=== PATIENT | male | born 1960 | race Caucasian/White ===

== ENCOUNTER 2019-04-23 16:28 | Emergency (ER) | payer MEDICARE, SELFPAY ==
--- NOTE | ~2019-04-23 | CT_ITS ---
EXAMINATION: CTA chest PE protocol EXAM DATE: 04/23/2019 18:07 INDICATION: Shortness of air, tachycardia. TECHNIQUE: Spiral CTA of the chest (pulmonary arteries) was performed with 100 cc Omnipaque 350 intr avenous contrast injection. Images were acquired during the pulmonary arterial phase. Coronal maxi mum intensity projection 3D-reconstructions were created by the technologist on dedicated workstation . Axial, coronal and sagittal reformatted images were reviewed. The dose-length product (DLP) for t his examination was 1182.35 mGy-cm. The exposure was tailored according to patient size (auto mA ex posure control), and iterative reconstruction (ASIR) was used as additional dose reduction technique. There is no prior study for comparison. FINDINGS: There are no pulmonary emboli in the 1st through 3rd order (central and interlobar) pulmon mark arteries. Some loss of attenuation in the segmental pulmonary arteries due to respiratory motion , but no intraluminal filling defects suspected. No thoracic aortic dissection. The lungs are brooke r. There are no pleural or pericardial effusions. Tracheobronchial tree is patent. There is no mediastinal, hilar or axillary lymphadenopathy. There is no pneumothorax. Heart normal in size. No evidence of coronary arterial calcification. Bilateral adrenal gland hyperplasia. There is thor acic spondylosis without osteoblastic or osteolytic lesions identified. IMPRESSION: 1. Limited segmental evaluation, but no pulmonary emboli are suspected. 2. No acute cardiopulmonary findings. Reviewed, dictated and finalized at location A. ERY EXAMINER
[2019-04-23 16:28] VITALS: BP 134/79; PULSE 107; RESP 19; TEMP 37.7; O2SAT 94
--- NOTE | 2019-04-23 16:55 | ECG_ITS ---
Measurements Intervals [place] Rate: 99 P: 67 UT: 168 QRS: -79 QRSD: 149 T: 47 QT: 374 QTc: 482 Interpretive Statements SINUS RHYTHM RIGHT BUNDLE BRANCH BLOCK LEFT ANTERIOR FASCICULAR BLOCK BASELINE WANDER- II, III, V6 ABNORMAL ECG Electronically Signed On 04-23-2019 20:13:23 OPERATIONS AND INTELLIGENCE ASSISTANT by iAdan Blood D.O.
[2019-04-23 17:12] LABS: Basophils Absolute Auto 0.06 K/mm3 (0.00-0.10); Basophils Percent Auto 0.3 % (0.0-1.0); Eosinophils Absolute Auto 0.06 K/mm3 (0.02-0.50); Eosinophils Percent Auto 0.3 % (1.0-6.0); Hematocrit 44.8 % (40.0-54.0); Hemoglobin 14.8 g/dL (14.0-18.0); Immature Granulocyte Absolute 0.11 K/mm3 (0.00-0.00); Immature Granulocyte Percent A 0.6 % (0.0-0.0); Lymphocytes Absolute Auto 2.29 K/mm3 (1.10-4.50); Lymphocytes Percent Auto 12.7 % (18.0-42.0); Mean Corpuscular Hemoglobin 26.1 pg (27.0-31.0); Mean Corpuscular Volume 78.9 fL (78.0-102.0); Monocytes Absolute Auto 0.71 K/mm3 (0.10-0.90); Monocytes Percent Auto 3.9 % (2.0-11.0); Neutrophils Absolute Auto 14.8 K/mm3 (1.7-7.2); Neutrophils Percent Auto 82.2 % (50.0-70.0); Platelet Count Result 320 K/mm3 (150-420); Red Blood Count 5.68 M/mm3 (4.70-6.10)
[2019-04-23 17:23] LABS: INR 3.4; Prothrombin Time 33.5 Seconds (9.64-11.0)
[2019-04-23 17:28] LABS: Influenza Control Valid (Valid)
[2019-04-23 17:30] LABS: BNP 6.5 pg/mL (0-100)
[2019-04-23 17:39] LABS: Alanine Aminotransferase 24 U/L (16-63); Albumin Level 3.7 g/dL (3.4-5.0); Alkaline Phosphatase 78 U/L (46-116); Anion Gap 17.9 mmol/L (7-16); Aspartate Amino Transferase 14 U/L (15-37); Bilirubin,Total 0.4 mg/dL (0.00-1.00); Blood Urea Nitrogen 13 mg/dL (7-18); Calcium 9.3 mg/dL (8.5-10.1); Carbon Dioxide 22 mmol/L (21-32); Chloride 97 mmol/L (98-108); Estimated CRCL calculation 116 ml/min; Estimated Glomerular Filt Rate > 60; Glucose 107 mg/dL (70-99); Osmolality Calculated 276 mOsm/kg (285-295); Potassium 3.9 mmol/L (3.5-5.1); Sodium 133 mmol/L (136-145); Troponin I < 0.02 ng/mL (0.00-0.056)
--- NOTE | 2019-04-23 17:41 | ED.GENADULT ---
HPI - General Adult General Chief complaint: Upper Respiratory Infection Stated complaint: amb History of Present Illness HPI narrative: Carlos is a 58M with a past medical history of hypertension, hyperlipidemia, COPD, diabetes as well as a history of DVT/PE that presented to the emergency department by EMS for jitters. Earlier today he started noticing he had the shakes. He also noticed his heart was beating fast. He has a home pulse ox and he thought it went down to the upper 80s. He states that he feels like he cannot get a deep breath but he can move air fine. he also has had a productive cough, Subjective fevers and chills. He denies any chest pain, syncope/ near syncope, and vomiting. Related Data Home Medications Medication Instructions Recorded Confirmed amlodipine 5 mg PO DAILY 04/23/19 04/23/19 atorvastatin 40 mg PO HS 04/23/19 04/23/19 budesonide-formoterol [Symbicort] 2 puff INHALATION BID 04/23/19 04/23/19 fluticasone propion-salmeterol 1 inh INHALATION DAILY 04/23/19 04/23/19 [Advair Diskus] insulin glargine [Basaglar KwikPen 1 unit SUBCUT DAILY 04/23/19 04/23/19 U-100 Insulin] insulin lispro [Humalog U-100 1 unit SUBCUT TID 04/23/19 04/23/19 Insulin] lisinopril-hydrochlorothiazide 1 tablet PO DAILY 04/23/19 04/23/19 metformin 500 mg PO DAILY 04/23/19 04/23/19 montelukast 10 mg PO DAILY 04/23/19 04/23/19 umeclidinium [Incruse Ellipta] 1 inh INHALATION DAILY 04/23/19 04/23/19 warfarin 1 mg PO HS 04/23/19 04/23/19 Allergies Allergy/AdvReac Type Severity Reaction Status Date / Time No Known Allergies Allergy Verified 01/30/19 09:18 Review of Systems Constitutional: Constitutional: Reports as per HPI, Denies chills and Denies fever(s) Eyes: Eyes: Reports no additional eye complaints ENT: Reports system reviewed and no additional complaints, except as documented Cardiovascular: Cardiovascular: Denies chest pain, Reports rapid heart rate and Denies radiating jaw, neck or arm pain Respiratory: Respiratory: Reports as per HPI Gastrointestinal: Gastrointestinal: Reports as per HPI Genitourinary: Genitourinary: Reports no additional male genitourinary complaints Musculoskeletal: Musculoskeletal: Reports no additional musculoskeletal complaints Integumentary/Breasts: Skin/Breast: Reports as per HPI Neurologic: Reports as per HPI Psychiatric: Psychiatric: Reports no additional psychiatric complaints Endocrine: Endocrine: Reports no additional endocrine complaints Hematologic/Lymphatic: Hematologic/Lymphatic: Reports no additional hematologic/lymphatic complaints Allergic/Immunologic: Allergic/Immunologic: Reports no additional allergic/immunologic complaints Exam Const: General: no acute distress and alert; No confusion Nutritional Appearance: obese Orientation/consciousness: patient oriented x3 Limitations: No altered mental status HENMT: Head: normal to inspection Other: normocephalic, atraumatic Eyes: Conjunctivae: conjunctivae normal Pupils: Equal, round and reactive pupils present Neck: Neck: normal visual inspection Chest: Chest palpation & inspection: normal inspection of the chest Resp: Effort & Inspection: normal respiratory effort Auscultation: clear to auscultation bilaterally Cardio: Rate: tachycardic Rhythm: regular rhythm Heart sounds: no murmurs Other: GI: GI Palp: Yes Soft to palpation, No Tenderness to palpation present (GI) and No Guarding due to palpation present (GI) Back/Spine/Pelvis: Back: no CVA tenderness Skin: General skin exam: normal color Other: Had tender erythematous rash under his pannus and in his groin folds with white exudate. He was also started found have surrounding beefy red erythema Neuro: General: patient oriented x3, moves all extremities, no focal motor deficits and CN's II-XI intact bilaterally Speech: normal speech Extrem: General: normal to inspection Psych: Mental Status: mental status grossly normal Cou
[2019-04-23 19:58] LABS: Add Urine Microscopic? NO; Appearance Urine Clear (Clear); Bilirubin Urine Negative (Negative); Blood Urine Negative (Negative); Color Urine Yellow (Yellow); Glucose Urine UA Negative (Negative); Ketones Urine Negative (Negative); Leukocyte Esterase Ur Negative (Negative); Nitrate Urine Negative (Negative); Protein Urine Negative (Negative); Specific Grav Ur <= 1.005 (1.010-1.020); Urobilinogen Urine 0.2 mg/dL (0.2-1.0)
[2019-04-23] MEDS: FLUCONAZOLE 100 MG TABLET 200 MG (20:13)
[2019-04-23] MEDS: CEPHALEXIN 500 MG CAPSULE PO (20:13)
[2019-04-23 20:26] VITALS: BP 122/77; PULSE 104; RESP 14; O2SAT 94
== END 2019-04-23 20:28 | disposition home or self-care (01) ==
PROVIDERS: Emergency Provider Family Medicine; PCP Family Medicine
DX: L30.4 Erythema intertrigo (principal); L03.90 Cellulitis, unspecified; R06.89 Other abnormalities of breathing; I10 Essential (primary) hypertension; E78.5 Hyperlipidemia, unspecified; J44.9 Chronic obstructive pulmonary disease, unspecified; E11.9 Type 2 diabetes mellitus without complications; Z86.718 Personal history of other venous thrombosis and embolism; Z79.01 Long term (current) use of anticoagulants
CPT/HCPCS: 36415; 71275; 80053; 81003; 83880; 84484; 85025; 85610; 87804; 93005; 99283; 99284; A9270; Q9965

== ENCOUNTER 2021-07-12 14:33 | Outpatient (CLI) | payer MEDICARE, SELFPAY ==
[2021-07-12 15:07] LABS: Creatinine Urine 22.81 mg/dL (40-278); MALB Creatinine Ratio 56.9 mg/g (0-30); Microalbumin Urine Random < 13.0 mg/L
[2021-07-12 15:20] LABS: Hemoglobin A1C 6.6 % (<5.7)
[2021-07-12 17:17] LABS: Alanine Aminotransferase 33 U/L (16-63); Albumin Level 3.6 g/dL (3.4-5.0); Alkaline Phosphatase 95 U/L (46-116); Anion Gap 13 mmol/L (8-16); Aspartate Amino Transferase 25 U/L (15-37); Bilirubin,Total 0.4 mg/dL (0.00-1.00); Blood Urea Nitrogen 14 mg/dL (7-18); Carbon Dioxide 23 mmol/L (21-32); Chloride 98 mmol/L (98-108); Cholesterol 112 mg/dL (0-200); Estimated Glomerular Filt Rate > 60; Glucose 197 mg/dL (70-99); HDL Direct 26 mg/dL (40-60); LDL Cholesterol Calculated 37 mg/dL (<130); Osmolality Calculated 283 mOsm/kg (285-295); Potassium 4.3 mmol/L (3.5-5.1); Sodium 134 mmol/L (136-145); Total Protein 7.1 g/dL (6.4-8.2); Triglycerides 244 mg/dL (0-150)
== END 2021-07-12 14:34 | disposition home or self-care (01) ==
LOC: CHSLAB 14:36
PROVIDERS: PCP Family Medicine; Visit Provider Family Medicine
DX: E11.9 Type 2 diabetes mellitus without complications (principal)
CPT/HCPCS: 36415; 80053; 80061; 82043; 83036

== ENCOUNTER 2021-08-03 10:29 | Outpatient (CLI) | payer MEDICARE, SELFPAY ==
--- NOTE | ~2021-08-03 | CT_ITS ---
EXAMINATION:CT lung screening DATE: 08/03/2021 10:48 INDICATION: Personal history of tobacco dependence. Current smoker with 80 pack year history. TECHNIQUE: Computed tomography (CT) of the chest was performed without intravenous contrast. Automate d exposure control and iterative reconstruction technique were employed. The dose-length product (DLP ) was 537.84 mGy-cm. COMPARISON: Chest CT 04/23/2019 FINDINGS: There is moderate emphysema. There is minimal atelectasis bilaterally. No pleural effusion. There is bilateral gynecomastia. The heart size is normal. There are coronary artery calcifications. No pericardial effusion. There are old healed right rib fractures. There is mild thoracic spondylosi s. IMPRESSION: 1. Lung-RADS category 2: Benign appearance or behavior. Continue annual screening with noncontrast lo w-dose chest CT in 12 months. Reviewed, dictated and finalized at location B. IMPRESSION: 1. Lung-RADS category 2: Benign appearance or behavior. Continue annual screeni ng with noncontrast low-dose chest CT in 12 months.
== END 2021-08-03 10:30 | disposition home or self-care (01) ==
LOC: CHSIMG 10:31
PROVIDERS: PCP Family Medicine; Visit Provider Nurse Practitioner Family
DX: Z12.2 Encounter for screening for malignant neoplasm of respiratory organs (principal); Z87.891 Personal history of nicotine dependence; R06.02 Shortness of breath
CPT/HCPCS: 71271

== ENCOUNTER 2022-05-05 13:34 | Outpatient (CLI) | payer MEDICARE, SELFPAY ==
--- NOTE | 2022-05-05 13:41 | ECHO_ITS ---
Patient Info Name: Carlos Mak Age: 61 years : 1960 Gender: Male Ht: 65 in Wt: 329 lbs BSA: 2.71 m2 HR: 96 bpm BP: 155 / 84 mmHg Technical Quality: Fair Exam Date: 05/05/2022 1:29 PM Exam Location: [facility], [place] Patient Status: Outpatient Admit Date: 05/05/2022 Staff Ordering Physician: Aidan Blood DO Computer Systems Consultant: Delvin Williamson RDCS, RT Attending Provider: Aidan Blood DO Referring Physician: Jeremi SIN; Exam Type: CA echo dop color flow w con Study Info Indications R06.00 - Dyspnea, unspecified Complete two-dimensional, color flow and Doppler transthoracic echocardiogram is performed with contrast to opacify the left ventricle and to improve the deliniation of the left ventricle endocardial borders. Summary 1. Left ventricular chamber dimension is normal. 2. Definity contrast administered improved wall motion interpretation. 3. Left ventricular systolic function is normal, estimated at 65-70%. 4. There is mild concentric increased left ventricular wall thickness. 5. The left ventricular diastolic function is grade I diastolic dysfunction. 6. E/e' 7 is not elevated. 7. There is mild aortic valve sclerosis. 8. The mitral valve has mildly calcified annulus. 9. There is trace tricuspid valve regurgitation. 10. Mild pulmonary hypertension, estimated pulmonary arterial systolic pressure is 42 mmHg. Left Ventricle E/e' 7 is not elevated. Definity contrast administered improved wall motion interpretation. Left ventricular chamber dimension is normal. Left ventricular systolic function is normal, estimated at 65-70%. There is mild concentric increased left ventricular wall thickness. The left ventricular diastolic function is grade I diastolic dysfunction. Right Ventricle Right ventricular systolic function is normal and with normal TAPSE 3.2 cm. Right ventricular chamber dimension is normal. Left Atria Left atrial chamber dimension is normal. Right Atria Right atrial chamber dimension is normal. Aortic Valve The aortic valve is probable trileaflet. There is mild aortic valve sclerosis. There is no aortic valve stenosis. There is no aortic valve regurgitation. Pulmonic Valve There is no pulmonic regurgitation. Mitral Valve The mitral valve has mildly calcified annulus. There is no mitral valve stenosis. There is no mitral valve regurgitation. Tricuspid Valve There is trace tricuspid valve regurgitation. Mild pulmonary hypertension, estimated pulmonary arterial systolic pressure is 42 mmHg. Pericardium/Pleural There is no pericardial effusion. Inferior Vena Cava Normal inferior vena cava with >50% collapse upon inspiration consistent with normal right atrial pressure, 5 mmHg. Aorta The aortic root size at the sinus of Valsalva is normal. Left Ventricular Outflow Tract Name Value Normal LVOT 2D LVOT Diameter 2.10 cm LVOT Doppler LVOT Peak Velocity 118.29 cm/s LVOT Peak Gradient 6 mmHg LVOT Mean Gradient 3 mmHg LVOT VTI 23.79 cm LVOT VTI/AV VTI
--- NOTE | 2022-05-05 14:47 | ECG_ITS ---
Measurements Intervals [place] Rate: 90 P: 68 VA: 192 QRS: -84 QRSD: 159 T: 34 QT: 392 QTc: 481 Interpretive Statements SINUS RHYTHM RIGHT BUNDLE BRANCH BLOCK LEFT ANTERIOR FASCICULAR BLOCK BASELINE ARTIFACT- I, III, AVR, AVL, AVF, V4 ABNORMAL ECG COMPARED TO ECG 04/23/2019 17:17:48 NO SIGNIFICANT CHANGES Electronically Signed On 05-05-2022 15:12:52 CDT by Aidan Blood D.O.
== END 2022-05-05 13:35 | disposition home or self-care (01) ==
LOC: CHSIMG 13:36
PROVIDERS: PCP Family Medicine; Visit Provider Internal Medicine Cardiovascular Disease
DX: R06.09 Other forms of dyspnea (principal); I35.0 Nonrheumatic aortic (valve) stenosis; I45.10 Unspecified right bundle-branch block; I27.20 Pulmonary hypertension, unspecified
CPT/HCPCS: 93005; C8929

== ENCOUNTER 2022-09-07 12:51 | Outpatient (CLI) | payer MEDICARE, SELFPAY ==
--- NOTE | ~2022-09-07 | CT_ITS ---
EXAMINATION:CT lung screening DATE: 09/07/2022 13:26 INDICATION: Personal history of nicotine dependence. Current smoker with 25 pack year history. TECHNIQUE: Computed tomography (CT) of the chest was performed without intravenous contrast. Automate d exposure control and iterative reconstruction technique were employed. The dose-length product (DLP ) was 626.32 mGy-cm. COMPARISON: Chest CT 08/03/2021, 10/08/13 FINDINGS: There is moderate emphysema. The lungs demonstrate minimal atelectasis. No pleural effusion . The heart size is normal. There are coronary artery calcifications. No pericardial effusion. There is bilateral gynecomastia. There is mild thoracic spondylosis. IMPRESSION: 1. Lung-RADS category 1: Negative. Continue annual screening with noncontrast low-dose chest CT in 12 months. Reviewed, dictated and finalized at location A. IMPRESSION: 1. Lung-RADS category 1: Negative. Continue annual screening with noncontrast l ow-dose chest CT in 12 months.
[2022-09-07 13:39] LABS: Alanine Aminotransferase 34 U/L (16-63); Albumin Level 3.5 g/dL (3.4-5.0); Alkaline Phosphatase 118 U/L (46-116); Anion Gap 14 mmol/L (8-16); Aspartate Amino Transferase 17 U/L (15-37); Bilirubin,Total 0.5 mg/dL (0.00-1.00); Blood Urea Nitrogen 16 mg/dL (7-18); Calcium 9.2 mg/dL (8.5-10.1); Carbon Dioxide 24 mmol/L (21-32); Chloride 98 mmol/L (98-108); Cholesterol 107 mg/dL (0-200); Estimated Glomerular Filt Rate > 60; Glucose 190 mg/dL (70-99); HDL Direct 28 mg/dL (40-60); LDL Cholesterol Calculated 31 mg/dL (<130); Magnesium 1.7 mg/dL (1.8-2.4); Osmolality Calculated 288 mOsm/kg (285-295); Potassium 4.4 mmol/L (3.5-5.1); Sodium 136 mmol/L (136-145); Total Protein 7.3 g/dL (6.4-8.2); Triglycerides 240 mg/dL (0-150)
== END 2022-09-07 12:52 | disposition home or self-care (01) ==
LOC: CHSIMG 12:58
PROVIDERS: Internal Medicine Cardiovascular Disease; PCP Family Medicine; Visit Provider Nurse Practitioner Family
DX: Z12.2 Encounter for screening for malignant neoplasm of respiratory organs (principal); E78.5 Hyperlipidemia, unspecified; Z87.891 Personal history of nicotine dependence
CPT/HCPCS: 36415; 71271; 80053; 80061; 83735

== ENCOUNTER 2022-09-19 13:30 | Outpatient (CLI) | payer MEDICARE, SELFPAY ==
[2022-09-19 14:16] VITALS: PULSE 112; O2SAT 92
[2022-09-19 14:20] VITALS: PULSE 127; O2SAT 89
--- NOTE | 2022-09-19 14:21 | HOMEO2EVAL ---
Evaluation was performed at [facility] Home Oxygen Evaluation RC: Home Oxygen (O2) Evaluation Start: 09/19/22 13:59 Freq: Status: Active Protocol: RPE Activity Type Activity Date Activity User E-sign Co-sign Detail Recorded Client Recorded Date Recorded By Document 09/19/22 14:16 KRM [id number] 09/19/22 14:21 KRM Document 09/19/22 14:20 KRM [id number] 09/19/22 14:21 KRM 09/19/22 09/19/22 14:16 14:20 Home O2 Evaluation [Oxygen] -Test Phase Resting Exercise -Oxygen Delivery Room Air Room Air [Pulse Oximetry] -Pulse Oximetry (90-100 %) 92 89 L [Pulse Rate] -Pulse Rate (60-100 beats/min) 112 H 127 H [Evaluation] -Activity Tolerance Poor [Exercise] -Ambulation Distance (feet) 100 -Ambulation Distance (meters) 30.47 [Comments] -Home Oxygen Evaluation Comments No supplemental o2 needed at this time. [Charges] -Treatment Charges O2 Evaluation - Outpatient
--- NOTE | 2022-09-25 23:01 | P.PCNPFT_ITS ---
PFT Interpretation DOS: 09/19/2022 REQUESTING: Delfin Jones APRN REASON FOR TESTING: Asthma-COPD PULMONARY FUNCTION TESTS Results are reliable and reproducible. Spirometry: Pre bronchodilator FEV1 is 2.17 L, 79%, normal. Pre bronchodilator FVC is 3.41 L, 97%, normal. FEV1 /FVC is 64%. After bronchodilator FEV1 is 2.23 L, 81%, +3% increase. After bronchodilator FVC is 3.58 L, 101%, +5% increase. This is statistically insignificant. The FEF 25- 75% is 1.06 L, 37% before bronchodilator, and there was a 6% drop after bronchodilator. Lung volumes: Total lung capacity is 4.91 L, 90% predicted, normal. Residual volume is 1.50 L, 74%. RV/TLC is 31%. Low end of normal. Airway resistance 54% predicted. Diffusion: DLCO is 16.5, 54%, mildly decreased. DLCO /VA 3.40, 88%, normal. Flow volume loop: There is mild coving of the expiratory limb consistent with airflow obstruction. IMPRESSION: This study shows a mild obstructive ventilatory impairment without response to bronchodilator, normal lung volumes, mild diffusion impairment that corrects for alveolar volume. Lack of response to bronchodilator should not preclude use if clinically indicated. Compared to the prior study 08/14/2017 the FEV1 has dropped more than expected, now 2.17 L compared to 2.56 L, now 79% and previously was 93%. there was no airflow obstruction A prior PFT on 08/14/2017 shows FEV1 2.56 L, 93% predicted, FVC 3.65 L, 104% predicted, and an FEV1/FVC ratio of 86%. No significant change after bronchodilator. Total lung capacity 5.16 L, 97%. Residual volume 1.49 L, 79%. RV/TLC 29%. The DLCO was 18.5, 60%, DLCO/ VA 3.87, 99%. Hannah Meadows MD
== END 2022-09-19 13:31 | disposition home or self-care (01) ==
LOC: CHSCARD 13:31
PROVIDERS: PCP Family Medicine; Visit Provider Nurse Practitioner Family
DX: J44.9 Chronic obstructive pulmonary disease, unspecified (principal)
CPT/HCPCS: 94060; 94618; 94726; 94729

== ENCOUNTER 2023-04-18 08:57 | Outpatient (CLI) | payer MEDICARE, SELFPAY ==
[2023-04-18 09:44] LABS: Alanine Aminotransferase 33 U/L (16-63); Albumin Level 3.9 g/dL (3.4-5.0); Alkaline Phosphatase 73 U/L (46-116); Anion Gap 14 mmol/L (8-16); Aspartate Amino Transferase 17 U/L (15-37); Bilirubin,Total 0.4 mg/dL (0.00-1.00); Blood Urea Nitrogen 24 mg/dL (7-18); Calcium 8.9 mg/dL (8.5-10.1); Carbon Dioxide 23 mmol/L (21-32); Chloride 103 mmol/L (98-108); Cholesterol 100 mg/dL (0-200); Estimated Glomerular Filt Rate > 60; Glucose 112 mg/dL (70-99); HDL Direct 31 mg/dL (40-60); LDL Cholesterol Calculated 25 mg/dL (<130); Osmolality Calculated 295 mOsm/kg (285-295); Potassium 4.4 mmol/L (3.5-5.1); Sodium 140 mmol/L (136-145); Total Protein 7.3 g/dL (6.4-8.2); Triglycerides 218 mg/dL (0-150)
== END 2023-04-18 08:58 | disposition home or self-care (01) ==
LOC: CHSLAB 08:59
PROVIDERS: PCP Family Medicine; Visit Provider Internal Medicine Cardiovascular Disease
DX: E78.5 Hyperlipidemia, unspecified (principal)
CPT/HCPCS: 36415; 80053; 80061

== ENCOUNTER 2023-09-12 12:11 | Outpatient (CLI) | payer MEDICARE, SELFPAY ==
--- NOTE | ~2023-09-12 | CT_ITS ---
EXAMINATION: CT lung screening DATE: 09/12/2023 12:32 INDICATION: Smoker. Shortness of breath. TECHNIQUE: Computed tomography (CT) of the chest was performed without intravenous contrast. The dose -length product was 463.23 mGy-cm. Automated exposure control and iterative reconstruction technique were employed. COMPARISON: CT dated 09/07/2022 FINDINGS: There is emphysema. No thoracic lymphadenopathy. No significant pleural or pericardial effu chen. Heart size normal. No significant vascular abnormality. There is gynecomastia. Stable bilateral adrenal thickening, likely secondary to adrenal hyperplasia. No endobronchial lesions. No focal airs pace disease. No suspicious pulmonary nodules or masses. Mild thoracic spondylosis. IMPRESSION: 1. Lung-RADS category 1: Negative. Continue annual screening with noncontrast low-dose chest CT in 12 months. Reviewed, dictated and finalized at location B. IMPRESSION: 1. Lung-RADS category 1: Negative. Continue annual screening with noncontrast l ow-dose chest CT in 12 months.
== END 2023-09-12 12:12 | disposition home or self-care (01) ==
PROVIDERS: PCP Family Medicine; Visit Provider Nurse Practitioner Family
DX: Z12.2 Encounter for screening for malignant neoplasm of respiratory organs (principal); Z87.891 Personal history of nicotine dependence
CPT/HCPCS: 71271

== ENCOUNTER 2023-11-15 15:04 | Outpatient (CLI) | payer MEDICARE, SELFPAY ==
[2023-11-15 15:14] LABS: Basophils Absolute Auto 0.06 K/mm3 (0.00-0.10); Basophils Percent Auto 0.5 % (0.0-1.0); Eosinophils Absolute Auto 0.19 K/mm3 (0.02-0.50); Eosinophils Percent Auto 1.6 % (1.0-6.0); Hematocrit 42.8 % (40.0-54.0); Hemoglobin 11.9 g/dL (14.0-18.0); Immature Granulocyte Absolute 0.07 K/mm3 (0.00-0.00); Immature Granulocyte Percent A 0.6 % (0.0-0.0); Lymphocytes Absolute Auto 2.31 K/mm3 (1.10-4.50); Mean Corpuscular HGB Conc 27.8 g/dL (32-36); Mean Corpuscular Hemoglobin 18.9 pg (27.0-31.0); Mean Platelet Volume 8.6 fl (8.7-11.0); Monocytes Absolute Auto 0.77 K/mm3 (0.10-0.90); Monocytes Percent Auto 6.7 % (2.0-11.0); Neutrophils Absolute Auto 8.17 K/mm3 (1.70-7.20); Neutrophils Percent Auto 70.6 % (50.0-70.0); Platelet Count Result 413 K/mm3 (150-420); Red Blood Count 6.29 M/mm3 (4.70-6.10); Red Cell Distribution Width 21.5 % (11.6-14.4); White Blood Count 11.6 K/mm3 (4.8-10.8)
[2023-11-15 15:25] LABS: Hemoglobin A1C 6.8 % (<5.7)
[2023-11-15 15:57] LABS: MALB Creatinine Ratio 54.1 mg/g (0-30); Microalbumin Urine Random < 13.0 mg/L
[2023-11-15 16:10] LABS: Alanine Aminotransferase 33 U/L (16-63); Albumin Level 3.6 g/dL (3.4-5.0); Alkaline Phosphatase 106 U/L (46-116); Anion Gap 15 mmol/L (4-12); Aspartate Amino Transferase 21 U/L (15-37); Bilirubin,Total 0.5 mg/dL (0.00-1.00); Blood Urea Nitrogen 19 mg/dL (7-18); Calcium 9.5 mg/dL (8.5-10.1); Carbon Dioxide 23 mmol/L (21-32); Chloride 101 mmol/L (98-108); Estimated Glomerular Filt Rate > 60; Glucose 128 mg/dL (70-99); Osmolality Calculated 292 mOsm/kg (285-295); Potassium 4.3 mmol/L (3.5-5.1); Sodium 139 mmol/L (136-145); Total Protein 7.4 g/dL (6.4-8.2)
[2023-11-16 10:32] LABS: Ferritin 11 ng/mL (26-388); Iron 24 ug/dL (65-175); Percent Iron Saturation 5 % (12-57)
== END 2023-11-15 15:05 | disposition home or self-care (01) ==
LOC: CHSLAB 15:05
PROVIDERS: PCP Family Medicine; Visit Provider Family Medicine
DX: E11.9 Type 2 diabetes mellitus without complications (principal); I10 Essential (primary) hypertension
CPT/HCPCS: 36415; 80053; 82043; 82728; 83036; 83540; 83550; 85025

== ENCOUNTER 2024-05-09 12:59 | Outpatient (CLI) | payer MEDICARE, SELFPAY ==
[2024-05-09 13:18] LABS: Basophils Absolute Auto 0.07 K/mm3 (0.00-0.10); Basophils Percent Auto 0.6 % (0.0-1.0); Eosinophils Absolute Auto 0.31 K/mm3 (0.02-0.50); Eosinophils Percent Auto 2.6 % (1.0-6.0); Hematocrit 57.9 % (40.0-54.0); Hemoglobin 17.3 g/dL (14.0-18.0); Immature Granulocyte Absolute 0.05 K/mm3 (0.00-0.00); Immature Granulocyte Percent A 0.4 % (0.0-0.0); Lymphocytes Absolute Auto 2.71 K/mm3 (1.10-4.50); Mean Corpuscular HGB Conc 29.9 g/dL (32-36); Mean Corpuscular Hemoglobin 24.3 pg (27.0-31.0); Mean Corpuscular Volume 81.3 fL (78.0-102.0); Mean Platelet Volume 8.7 fl (8.7-11.0); Monocytes Absolute Auto 0.78 K/mm3 (0.10-0.90); Monocytes Percent Auto 6.6 % (2.0-11.0); Neutrophils Absolute Auto 7.88 K/mm3 (1.70-7.20); Neutrophils Percent Auto 66.8 % (50.0-70.0); Platelet Count Result 338 K/mm3 (150-420); Red Blood Count 7.12 M/mm3 (4.70-6.10); Red Cell Distribution Width 23.6 % (11.6-14.4); White Blood Count 11.8 K/mm3 (4.8-10.8)
[2024-05-09 13:26] LABS: Add Urine Microscopic? NO; Appearance Urine Clear (Clear); Bilirubin Urine Negative (Negative); Blood Urine Negative (Negative); Color Urine Light Yellow (Yellow); Glucose Urine UA 3+ (Negative); Ketones Urine Negative (Negative); Leukocyte Esterase Ur Negative (Negative); Nitrate Urine Negative (Negative); Protein Urine Negative (Negative)
--- OUTSIDE RECORDS SUMMARY | 2024-05-09 13:31 | XMS_ITS | Encounter Summary ---
Author Organization [facility] Address [address] [place] [id number] Care Team Providers Care Library Circulation Assistant Name Role Phone Zafar Loaiza MD Primary Care Provider [phone] Jarrod Morel MD [facility] Ian Hsu DO Primary Care Provider [phone] Encounter Details Date Type Department Care Team (Late st Contact Info) Description 07/01/2015 Abstract [facility] AT [address] [address] Jarrod Morel MD Social History Tobacco Use Types Packs/Day Years Used Date Smoking Tobacco: Smoker, Current Status Unknown Alcohol Use Standard Drinks/Week Comments No 0 (1 standard drink = 0.6 oz pur e alcohol) Sex and Gender Information Value Date Recorded Sex Assigned at Not on file Legal Sex Male 4:47 PM CDT Gender Identity Not on file Sexual Orientation Not on file Occupation Industry Job Start Date Job End Date Disabled Not on file Not on file Not on file documented as of this encounter Plan of Treatment Not on file documented as of this encounter Visit Diagnoses Not on filedocumented in this encounter Care Teams Library Circulation Assistant Relationship Specialty Start Date End Date Zafar Loaiza MD [address] [place] [address] PCP - General FAMILY PRACTICE 07/26/16 06/17/19 Ian Vinson DO [address] [place] [address] PCP - General FAMILY PRACTICE 06/18/19 Jarrod Morel MD [address] [place] [address] [place] Neurology Nurse CARDIOVASCULAR DISEASE 07/26/16 documented as of this encounter
--- OUTSIDE RECORDS SUMMARY | 2024-05-09 13:31 | XMS_ITS | Encounter Summary ---
Author Organization [facility] Address [facility] [place] [address] Care Team Providers Care Transitions Rn Care Coordinator Name Role Phone Zafar Loaiza MD Primary Care Provider [phone] Jarrod Morel MD [facility] Ian Hsu DO Primary Care Provider [phone] Encounter Details Date Type Department Care Team (Late st Contact Info) Description 09/10/2017 Abstract [facility] AT [address] [place] [address] Jarrod Morel MD Social History Tobacco Use Types Packs/Day Years Used Date Smoking Tobacco: Every Day Smokeless Tobacco: Never Alcohol Use Standard Drinks/Week Comments No 0 (1 standard drink = 0.6 oz pur e alcohol) Sex and Gender Information Value Date Recorded Sex Assigned at Not on file Legal Sex Male 4:47 PM CDT Gender Identity Not on file Sexual Orientation Not on file Occupation Industry Job Start Date Job End Date Retired Not on file Not on file Not on file documented as of this encounter Plan of Treatment Not on file documented as of this encounter Visit Diagnoses Not on filedocumented in this encounter Care Teams Transitions Rn Care Coordinator Relationship Specialty Start Date End Date Zafar Loaiza MD [address] [place] [address] PCP - General FAMILY PRACTICE 07/26/16 06/17/19 Ian Vinson DO [address] [place] [address] PCP - General FAMILY PRACTICE 06/18/19 Jarrod Morel MD [address] [place] [address] [place] [employer] Director CARDIOVASCULAR DISEASE 07/26/16 documented as of this encounter
--- OUTSIDE RECORDS SUMMARY | 2024-05-09 13:31 | XMS_ITS | CONTINUITY OF CARE DOCUMENT ---
Author Name anjelser, qieuser Address Unknown Organization [facility] Address [address] [place] [address] Phone [phone] Care Team Providers Care Medical Practice Assistant Name Role Phone Humberto Marin MD Unavailable [phone] HANNA HE MD Unavailable [phone] HANNA HE MD Unavailable [phone] PROBLEMS Condition Status Date Provider Notes Edema active Humberto Marin MD Shortness of breath active Humberto Marin MD COPD active Humberto Marin MD Personal history of arthritis active Humberto Marin MD HTN essential active Humberto Marin MD Sleep apnea-severe active Humberto Marin MD Tobacco abuse active Humberto Marin MD Diabetes mellitus, Type II ( new onset 01/2015) active Humberto Marin MD DVT active Humberto Marin MD Pulmonary embolism active Humberto Marin MD ENCOUNTERS Date Type Provider Location Encounter Diag nosis - In-person encounter Office Visit Humberto Marin MD [facility] Diabetes mellitus, Type II (new onset 01/2015)DVTPulmonary embolism - In-person encounter [facility] Visit [facility] Tobacco abuse - In-person encounter Office Visit [facility] - In-person encounter Office Visit [facility] Sleep apnea-severe - In-person encounter Office Visit [facility] - In-person encounter Office Visit [facility] EdemaShortness of breathCOPDPersonal history of arthritisHTN essential VITAL SIGNS Date Observation Value Provider blood pressure, diastolic 86 mm[Hg] Us tova Marin MD blood pressure, systolic 128 mm[Hg] Marcos Marin MD pulse rate 88 /min Humberto Marin MD oxygen saturation, oximetry 97 % Humberto Marin MD respiratory rate E&M 18 /min Humberto nugent MD Body Mass Index (Ratio) 54.91 kg/m2 Afshin Marin MD weight E&M 330 [lb_av] Humberto Marin MD blood pressure, diastolic 78 mm[Hg] Us tova Marin MD blood pressure, systolic 120 mm[Hg] Marcos Marin MD pulse rate 72 /min Humberto Marin MD oxygen saturation, oximetry 92 % Humberto Marin MD Body Mass Index (Ratio) 54.91 kg/m2 Afshin Marin MD weight E&M 330 [lb_av] Humberto Marin MD Body Mass Index (Ratio) 56.07 kg/m2 Afshin Marin MD blood pressure, diastolic 80 mm[Hg] Us tova Marin MD blood pressure, systolic 122 mm[Hg] Marcos Marin MD pulse rate 62 /min Humberto Marin MD oxygen saturation, oximetry 98 % Humberto Marin MD respiratory rate E&M 18 /min Humberto nugent MD weight E&M 337 [lb_av] Humberto Marin MD Body Mass Index (Ratio) 54.41 kg/m2 Afshin Marin MD blood pressure, diastolic 74 mm[Hg] Us tova Marin MD blood pressure, systolic 110 mm[Hg] Marcos Marin MD pulse rate 66 /min Humberto Marin MD oxygen saturation, oximetry 95 % Humberto Marin MD respiratory rate E&M 28 /min Humberto nugent MD weight E&M 327 [lb_av] Humberto Marin MD blood pressure, diastolic 76 mm[Hg] Us tova Marin MD blood pressure, systolic 114 mm[Hg] Marcos Marin MD pulse rate 56 /min Humberto Marin MD oxygen saturation, oximetry 99 % Humberto Marin MD respiratory rate E&M 20 /min Humberto nugent MD weight E&M 333 [lb_av] Humberto Marin MD blood pressure, diastolic 74 mm[Hg] Us tova Marin MD blood pressure, systolic 118 mm[Hg] Marcos Marin MD oxygen saturation, oximetry 94 % Humberto Marin MD pulse rate 68 /min Humberto Marin MD respiratory rate E&M 20 /min Humberto nugent MD weight E&M 334 [lb_av] Humberto Marin MD height E&M 65 [in_i] Humberto Marin MD ALLERGIES No Known Drug Allergies HISTORY OF MEDICATION USE Medication Status Instructions Dates Provider Indications Com ments IVÁN DELICA LANCETS 33G active Use 1 Lancet 3 Times a Day to Check Blood Sugar. 4 Samuel Conway RN ONETOUCH ULTRA BLUE IN VITRO STRIP active Use 1 Test Strip to Check Blood Sugar 3 Times a Day. 4 Samuel Conway RN GLIMEPIRIDE 2 MG ORAL TABLET active 1 Humberto Marin MD FAMOTIDINE 20 MG ORAL TABLET active 1 Humberto Marin MD METFORMIN HCL 500 MG ORAL TABLET active 1 tablet b.i.d. 1 Humberto Marin MD WARFARIN SODIUM 5 MG ORAL TABLET active 1 Humberto Marin MD LANTUS SOLUTION active 1 Humberto Marin MD HUMALOG 100 UNIT/ML SUBCUTANEOUS SOLUTION CARTRIDGE active 1 Humberto Marin MD ALDACTONE 50 MG ORAL TABLET completed ONE TAB. DAILY 7 - 1 Humberto Marin MD LASIX 40 MG ORAL TABLET completed ONE TAB DAILY 7 - 1 Humberto Marin MD SPIRIVA HANDIHALER 18 MCG INHALATION CAPSULE active 7 Humberto Marin MD SYMBICORT AEROSOL active 7 Humberto Marin MD PROVENTIL HFA AEROSOL SOLUTION active PRN 7 Humberto Marin MD AMLODIPINE BESYLATE 5 MG ORAL TABLET active ONE TAB. DAILY 7 Humberto Marin MD LISINOPRIL 20 MG ORAL TABLET active ONE TAB. DAILY 7 Humberto Marin MD METOPROLOL TARTRATE 100 MG ORAL TABLET active 1.5 tab daily 7 Humberto Marin MD SOCIAL HISTORY Date Observation Value Provider smoking/tobacco cess ation, patient education and counseling yes Humberto Marin MD cigarette use yes Humberto Andrea smoking status Current every day smoker Jeffery Marin MD social history reviewed E&M revi ewed - no changes required Humberto Marin MD smoking/tobacco cess ation, patient education and counseling yes Humberto Marin MD cigarette use yes Humberto Andrea smoking status Current every day smoker Jeffery Marin MD social history reviewed E&M revi ewed - no changes required Humberto Marin MD cigarette use yes Humberto Andrea smoking/tobacco cess ation, patient education and counseling yes Humberto Marin MD smoking status Current every day smoker U robert Marin MD social history reviewed E&M revi ewed - no changes required Humberto Marin MD smoking/tobacco cess ation, patient education and counseling yes Humberto Marin MD smoking status Current every day smoker U robert Marin MD social history reviewed E&M revi ewed - no changes required Humberto Marin MD smoking/tobacco cess ation, patient education and counseling yes Humberto Marin MD social history E&M Patient asaf olivera smokes every day. S mokes less than 1/2 ppd U sed to smoke 1 1/2-2 ppd Smoking History: P atient currently smokes every day. P atient has been counseled to quit. Humberto Marin MD social history reviewed E&M revi ewed - no changes required Humberto Marin MD smoking status current every day smoker U robert Marin MD social history reviewed E&M revi ewed - no changes required Humberto Marin MD social history E&M Patient asaf franklinly smokes every day. Smoking History: P atient currently smokes every day. P atient has been counseled to quit. S mokes less than 1/2 ppd U sed to smoke 1 1/2-2 ppd Humberto Marin MD smoking/tobacco cess ation, patient education and counseling yes Humberto Marin MD smoking status current every day smoker U robert Marin MD FAMILY HISTORY Family Member Condition Father Family History of Co ronary Artery Disease: Mother Family History of Co ronary Artery Disease: INSURANCE PROVIDERS Payer name Policy type / Coverage type [facility] Medicaid 1 [id number] TREATMENT PLAN Date Name Performer Cardiology: B P today: 128/86 P rior BP: 120/78 (12/28/2014) Humberto Marin MD Cardiology:The Patie nt was reencouraged to stop smoking. Humberto Marin MD Cardiology Humberto Marin MD Cardiology:On continuous 3lpm O2 Humberto Marin MD Cardiology:Compliant with medica tions per pt Humberto Marin MD Cardiology:On Coumadin Humberto hernandez MD Cardiology:On Coumadin Humberto hernandez MD Cardiology Humberto Marin MD Cardiology: B P today: 120/78 P rior BP: 122/80 (06/29/2014) Humberto Marin MD Cardiology Humberto Marin MD Cardiology Humberto Marin MD Follow up faxed 07/01 0816:BP 122/80 His updated medication list for this problem includes: Aldactone 50 Mg Tabs (Spironolactone) ..... One tab. daily Lasix 40 Mg Tabs (Furosemide) ..... One tab daily Amlodipine Besylate 10 Mg Tabs (Amlodipine besylate) ..... One tab. q.d. Lisinopril 20 Mg Tabs (Lisinopril) ..... One tab. daily Metoprolol Tartrate 100 Mg Tabs (Metoprolol tartrate) ..... 1.5 tab. twice daily Humberto Marin MD Follow-upprinted to homero:BP 110/74 His updated medication list for this problem includes: Aldactone 50 Mg Tabs (Spironolactone) ..... One tab. daily Lasix 40 Mg Tabs (Furosemide) ..... One tab daily Amlodipine Besylate 10 Mg Tabs (Amlodipine besylate) ..... One tab. q.d. Lisinopril 20 Mg Tabs (Lisinopril) ..... One tab. daily Metoprolol Tartrate 100 Mg Tabs (Metoprolol tartrate) ..... 1.5 tab. twice daily Humberto Marin MD faxed 11/24/13 [id number] Humberto Marin MD Date Name Sleep Study Titratio n BASIC METABOLIC PANE L W/EGFR Sleep Study STR - Adenosine HISTORY OF PROCEDURES Procedure Date Procedure Name Provider Procedure Notes S tatus SNOMED-CT: 281626860 [id number] Current Medications Documented Humberto Marin MD completed SNOMED-CT: 797652780 Smoking Cessation Counseling Humberto Marin MD completed SNOMED-CT: 50435525 Physical Exam, Performed: Pulse Exam of Foot Humberto Marin MD completed SNOMED-CT: 824165076 090409 Current Medications Documented Humberto Marin MD completed SNOMED-CT: 560427330 Smoking Cessation Counseling Humberto Marin MD completed SNOMED-CT: 81559382 Physical Exam, Performed: Pulse Exam of Foot Humberto Marin MD completed
--- OUTSIDE RECORDS SUMMARY | 2024-05-09 13:31 | XMS_ITS | Clinical Summary ---
Author Organization [facility] Address [address] [place] [address] Care Team Providers Care Rectifier Operator Name Role Phone Jarrod Morel MD, Josh DO Primary Care Provider [phone] Allergies No known active allergies Medications famotidine 20 MG tablet Take 1 tablet by mouth daily. 6 Active insulin lispro (HUMALOG) 100 UNIT/ML injection (VIAL) Humalog (insulin lispro) solution 100 unit/mL; inject unit subcutaneous injection as directed; 0; -Apr-2015; Active 6 Active insulin glargine (LANTUS) 100 UNIT/ML injection (VIAL) Lantus (insulin glargine) solution 100 unit/mL; inject unit subcutaneous injection as directed; 0; -Apr-2015; Active 6 Active montelukast 10 MG tablet 7 Active warfarin 4 MG tablet Take 7 mg by mouth daily. 3 7 Active atorvastatin 40 MG tablet Take 40 mg by mouth daily. Active lisinopril-hydr ochlorothiazide 20-25 MG tablet Take 1 tablet by mouth daily. Active Fish Oil-Cholecalcif elma (FISH OIL + D3) 4797-3266 MG-UNIT Cap Take 1 capsule by mouth 2 (two) times daily. Active BASAGLAR KWIKPEN 100 UNIT/ML injection (PEN) 8 Active polyethylene glycol powder 8 Active fluticasone propionate 50 MCG/ACT nasal spray 9 Active ADVAIR DISKUS 500-50 MCG/DOSE inhaler Inhale 1 puff into the lungs 2 (two) times a day. 0 Active metFORMIN 1000 MG tablet Take 1,000 mg by mouth 2 (two) times daily. 0 Active INCRUSE ELLIPTA 62.5 MCG/INH AEROSOL POWDER, BREATH ACTIVATED 0 Active amLODIPine 10 MG tablet Take 10 mg by mouth daily. 0 Active vitamin C 500 MG tablet Take 500 mg by mouth daily. Active vitamin B-12 100 MCG tablet Take 50 mcg by mouth daily. Active Active Problems Problem Noted Date Diagnosed Date Current smoker 06/19/2019 DVT (deep venous thrombosis) ([facility]) 1 03/11/2016 Sleep apnea 01/09/2017 HTN (hypertension) 01/09/2017 COPD (chronic obstructive pu lmonary disease) ([facility]) 01/09/2017 Diabetes ([facility]) 01/09/2017 Pulmonary embolism ([facility]) 01/09/2017 Class 3 obesity without serious comorbidity in a dult 01/09/2017 Hyperlipidemia Immunizations Name Administration Dates Next Due Influenza (Generic) 1960 Pneumococcal (Pneumovax 23) 1960 Family History Medical History Relation Comments Coronary artery disease Father Coronary artery disease Mother Coronary artery disease Other prematur e Relation Status Comments Father Alive [place] with CABG at age 40, cataracts Mother Alive thyroid, macular degeneration Other Other Family history i s positive for: Social History Tobacco Use Types Packs/Day Years Used Date Smoking Tobacco: Every Day Cigarettes Smokeless Tobacco: Never Alcohol Use Standard Drinks/Week [...] file Not on file Not on file Last Filed Vital Signs Vital Sign Reading Time Taken Comments Blood Pressure 142/72 06/18/2019 3:20 PM CDT Pulse 110 06/18/2019 3:20 PM CDT Temperature - - Respiratory Rate 18 09/14/2017 10:34 AM CDT Oxygen Saturation 97% 09/14/2017 10:34 AM CDT Inhaled Oxygen Concentration - - Weight 137.4 kg (303 lb) 06/18/2019 3:20 PM CDT Height 165.1 cm (5' 5 ) 06/18/2019 3:20 PM CDT Body Mass Index 50.42 06/18/2019 3:20 PM CDT Plan of Treatment Health Maintenance Due Date Last Done Comments Colorectal Cancer Screening Colonoscopy (10 Years) 1962 Kidney Health Evaluation 1962 Hemoglobin A1C 1962 Annual Physical 1965 Pneumococcal Vaccine: Pediatrics (0 to 5 Years) and At-Risk Patients (6 to 64 Years) (1 of 2 - PCV) 1968 1962 Diabetes: Retinopathy Eye Exam 1980 Hepatitis C 1980 DTaP, Tdap and Td Vaccines ( 1 - Tdap) 1981 Zoster Vaccines (1 of 2) 2012 Lipid Panel 08/04/2016 08/05/2015, 07/05/2015 RSV Immunization or 60+ Years (1 - Risk 60-74 years 1-dose series) 2022 COVID-19 Vaccine ( - 2023-2 5 season) 2023 Influenza Adult (#1) 2023 1962 Meningococcal B Vaccine Aged Out No l onger eligible based on patient's age to complete this topic Meningococcal Vaccine Aged Out No jarek nj eligible based on patient's age to complete this topic RSV Immunizations Under 20 Months Aged Out No longer eligible b ased on patient's age to complete this topic Procedures Procedure Name Priority Date/Time Associated Diagnosis Comments LIPID PANEL (OUTSIDE LAB) Routine 08/05/2015 from Last 3 Months or Most Recently Relevant to Health Maintenance Results * LIPID PANEL (OUTSIDE LAB) (08/05/2015) CHOLESTEROL 128 TRIGLYCERIDES 254 HDL 26 LDL (CALCULATED) 51 ALT 38 AST 15 08/05/2015 us Jarrod Morel MD LAB-OUTSIDE/ABSTRACTED Leny l Result from Last 3 Months or Most Recently Relevant to Health Maintenance Insurance MEDICARE Care Teams Rectifier Operator Relationship Specialty Start Date End Date Ian Vinson DO [address] [id number] PCP - General FAMILY PRACTICE 06/18/19 Jarrod Morel MD [place] Corporate Officer CARDIOVASCULAR DISEASE 07/26/16
[2024-05-09 13:42] LABS: Creatinine Urine 36.47 mg/dL (40-278); Hemoglobin A1C 6.1 % (<5.7); MALB Creatinine Ratio 35.6 mg/g (0-30); Microalbumin Urine Random < 13.0 mg/L
[2024-05-09 14:04] LABS: Alanine Aminotransferase 33 U/L (16-63); Albumin Level 3.8 g/dL (3.4-5.0); Alkaline Phosphatase 109 U/L (46-116); Anion Gap 12 mmol/L (4-12); Aspartate Amino Transferase 16 U/L (15-37); Bilirubin,Total 0.4 mg/dL (0.00-1.00); Blood Urea Nitrogen 35 mg/dL (7-18); Calcium 10.8 mg/dL (8.5-10.1); Carbon Dioxide 27 mmol/L (21-32); Chloride 103 mmol/L (98-108); Estimated Glomerular Filt Rate > 60; Glucose 153 mg/dL (70-99); Osmolality Calculated 305 mOsm/kg (285-295); Sodium 142 mmol/L (136-145); Thyroid Stimulating Hormone 1.42 uIU/mL (0.36-3.74); Total Protein 7.5 g/dL (6.4-8.2)
== END 2024-05-09 13:00 | disposition home or self-care (01) ==
LOC: CHSLAB 13:01
PROVIDERS: PCP Family Medicine; Visit Provider Family Medicine
DX: E11.9 Type 2 diabetes mellitus without complications (principal)
CPT/HCPCS: 36415; 80053; 81003; 82043; 83036; 84443; 85025

== ENCOUNTER 2024-09-15 07:25 | Outpatient (CLI) | payer MEDICARE, SELFPAY ==
--- NOTE | ~2024-09-15 | CT_ITS ---
CT Scan of the Chest without Contrast: Clinical Indication: Lung cancer screening, nicotine dependence Technique: Contiguous sections were acquired throughout the chest without intravenous contrast. Dose reduction technique was used on this scan by utilizing automated exposure control and iterative recon struction technique. The dose-length product (DLP) was 558.04 mGy-cm. COMPARISON: 09/12/2023 Findings: There is no evidence of any significant mediastinal, hilar or axillary lymphadenopathy. The mediastin al soft tissues appear normal. There is no evidence of pleural or pericardial effusion. The lungs are clear. No pulmonary nodules or infiltrates are noted. Images through the upper abdomen reveal no abnormalities. Impression: Lung RADS 1: Negative. [address] advised. Reviewed, dictated and finalized at location . Impression: Lung RADS 1: Negative. [address] advised.
--- OUTSIDE RECORDS SUMMARY | 2024-09-15 07:29 | XMS_ITS | Encounter Summary ---
Author Organization [facility] Address [facility] [place] [address] Care Team Providers Care Steam Brush Operator Name Role Phone Zafar Loaiza MD Primary Care Provider [phone] Jarrod Morel MD Unavailable [phone] Ian Vinson DO Primary Care Provider [phone] Encounter Details Date Type Department Care Team (Late Contact Info) Description 09/10/2017 Abstract [facility] [address] [place] [address] Jarrod Morel MD [address] [place] [address] Social History Tobacco Use Types Packs/Day Years [...] on filedocumented in this encounter Care Teams Steam Brush Operator Relationship Specialty Start Date End Date Zafar Loaiza MD [address] [place] [address] PCP - General FAMILY PRACTICE 07/26/16 06/17/19 Ian Vinson DO [address] [place] [address] PCP - General FAMILY PRACTICE 06/18/19 Jarrod Morel MD [address] [place] [address] [place] [employer] Veneer Taper CARDIOVASCULAR DISEASE 07/26/16 documented as of this encounter
--- OUTSIDE RECORDS SUMMARY | 2024-09-15 07:29 | XMS_ITS | Encounter Summary ---
Author Organization [facility] Address formerly [facility] [place] [address] Care Team Providers Care Biscuit Factory Worker Name Role Phone Zafar Loaiza MD Primary Care Provider [phone] Jarrod Morel MD Unavailable [phone] Ian Vinson DO Primary Care Provider [phone] Encounter Details Date Type Department Care Team (Late st Contact Info) Description 07/01/2015 Abstract [facility] [address] [place] [address] Jarrod Morel MD [address] [place] [address] Social History Tobacco Use Types [...] on filedocumented in this encounter Care Teams Biscuit Factory Worker Relationship Specialty Start Date End Date Zafar Loaiza MD [address] [place] [address] PCP - General FAMILY PRACTICE 07/26/16 06/17/19 Ian Vinson DO [address] [place] [address] PCP - General FAMILY PRACTICE 06/18/19 Jarrod Morel MD [address] [place] [address] [place] Aircraft Maintenance Director CARDIOVASCULAR DISEASE 07/26/16 documented as of this encounter
--- OUTSIDE RECORDS SUMMARY | 2024-09-15 07:29 | XMS_ITS | Clinical Summary ---
Author Organization [facility] Address [address] [place] [address] Care Team Providers Care Industrial Pharmacist Name Role Phone Jarrod Morel MD Unavailable [phone] Ian Vinson DO Primary Care Provider [phone] Allergies No known active allergies Medications famotidine [...] Fish Oil-Cholecalcif elma (FISH OIL + D3) 3104-3049 MG-UNIT Cap Take 1 capsule by mouth [...] Current smoker 06/19/2019 DVT (deep venous thrombosis) ([facility]) 1 03/11/2016 Sleep apnea 01/09/2017 HTN (hypertension) 01/09/2017 COPD (chronic obstructive pu lmonary disease) ([facility]) 01/09/2017 Diabetes ([facility]) 01/09/2017 Pulmonary embolism ([facility]) 01/09/2017 Class 3 obesity without serious comorbidity in a dult 01/09/2017 Hyperlipidemia Immunizations Immunization Administration Dates Next Due Influenza (Generic) 1962 Pneumococcal (Pneumovax 23) 1962 Family History Medical History Relation Comments Coronary artery disease Father Coronary artery disease Mother Coronary artery disease Other prematur e Relation Status Comments Father Alive [place] with CABG at age 40, cataracts Mother [...] 3:20 PM CDT Height 165.1 cm (5' 5) 06/18/2019 3:20 PM CDT Body Mass Index 50.42 06/18/2019 3:20 PM CDT Plan of Treatment Health Maintenance Due Date Last Done Comments Colorectal Cancer Screening Colonoscopy (10 Years) 1962 Kidney Health Evaluation 1962 Hemoglobin A1C 1962 Annual Physical 1965 Diabetes: Retinopathy Eye Exam 1980 Hepatitis C 1980 DTaP, Tdap and Td Vaccines ( 1 - Tdap) 1981 Pneumococcal Vaccine: 50+ Years (1 of 2 - PCV) 1981 1962 Zoster Vaccines (1 of 2) 2012 Lipid Panel 08/04/2016 08/05/2015, 07/05/2015 RSV Immunization or 60+ Years (1 - Risk 60-74 years 1-dose series) 2022 COVID-19 Vaccine (1 - 2023-2 5 season) 2023 Meningococcal B Vaccine Aged Out No l [...] 08/05/2015 us Jarrod Morel MD LAB-OUTSIDE/ABSTRACTED [place]y harding Result from Last 3 Months or Most Recently Relevant to Health Maintenance Insurance MEDICARE Care Teams Industrial Pharmacist Relationship Specialty Start Date End Date Ian Vinson DO [address] [place] [address] PCP - General FAMILY PRACTICE 06/18/19 Jarrod Morel MD [address] [place] [address] [place] Bottle Sorter CARDIOVASCULAR DISEASE 07/26/16
== END 2024-09-15 07:26 | disposition home or self-care (01) ==
PROVIDERS: PCP Family Medicine; Visit Provider Nurse Practitioner Family
DX: Z12.2 Encounter for screening for malignant neoplasm of respiratory organs (principal); Z87.891 Personal history of nicotine dependence
CPT/HCPCS: 71271

== ENCOUNTER 2024-10-10 23:15 | Observation (INO) | payer MEDICARE, SELFPAY ==
--- NOTE | ~2024-10-10 | XR_ITS ---
XR chest 1V portable 10/10/2024 23:41 Indication: Shortness of breath Procedure: AP portable chest Comparison: Comparison to multiple prior studies sequentially, with oldest reviewed study dated 10/24/2013. Findings: Heart size normal. Mild interstitial edema. No pleural effusion or pneumothorax. Impression: 1: Mild interstitial edema. Reviewed, dictated and finalized at location O. Impression: 1: Mild interstitial edema.
[2024-10-10 23:15] VITALS: BP 132/76; PULSE 88; RESP 26; TEMP 36.9; O2SAT 85; O2SAT 91
--- OUTSIDE RECORDS SUMMARY | 2024-10-10 23:17 | XMS_ITS | Encounter Summary ---
Author Organization [facility] Address [facility] [place] [address] Care Team Providers Care Data Input Clerk Name Role Phone Zafar Loaiza MD Primary Care Provider [phone] Jarrod Morel MD Unavailable [phone] Ian Vinson DO Primary Care Provider [phone] Encounter Details Date Type Department Care Team (Late Contact Info) Description 09/10/2017 Abstract [facility] [address] [place] [address] Jarrod Morel MD [address] [place] [address] Social History Tobacco Use Types [...] on filedocumented in this encounter Care Teams Data Input Clerk Relationship Specialty Start Date End Date Zafar Loaiza MD [address] [place] [address] PCP - General FAMILY PRACTICE 07/26/16 06/17/19 Ian Vinson DO [address] [place] [address] PCP - General FAMILY PRACTICE 06/18/19 Jarrod Morel MD [address] [place] [address] [place] Metallographer CARDIOVASCULAR DISEASE 07/26/16 documented as of this encounter
--- OUTSIDE RECORDS SUMMARY | 2024-10-10 23:17 | XMS_ITS | Encounter Summary ---
Author Organization [facility] Address [address] [place] [address] Care Team Providers Care Staffing Executive Name Role Phone Zafar Loaiza MD Primary Care Provider [phone] Jarrod Morel MD Unavailable [phone] Ian Vinson DO Primary Care Provider [phone] Encounter Details Date Type Department Care Team (Late st Contact Info) Description 07/01/2015 Abstract [facility] [address] [place] [address] Jarrod Morel MD [address] [place] [address] Social History Tobacco Use Types [...] on filedocumented in this encounter Care Teams Staffing Executive Relationship Specialty Start Date End Date Zafar Loaiza MD [address] [place] [address] PCP - General FAMILY PRACTICE 07/26/16 06/17/19 Ian Vinson DO [address] [place] [address] PCP - General FAMILY PRACTICE 06/18/19 Jarrod Morel MD [address] [place] [address] [place] Artist'S Model CARDIOVASCULAR DISEASE 07/26/16 documented as of this encounter
--- NOTE | 2024-10-10 23:18 | ED.GENADULT ---
HPI - General Adult General Chief complaint: Shortness of Breath/Dyspnea Stated complaint: SOB Time Seen by Provider: 10/10/24 23:17 Source: patient Mode of arrival: ambulatory Limitations: no limitations History of Present Illness HPI narrative: 64 years old white male came to the ED by ambulance from home complaining of current shortness in his got worse lately. He denies any fever or chills or new coughing or chest pain. History of COPD, hypertension, diabetes, hyperlipidemia And sleep apnea on CPAP. which is broken. Patient does smoke cigarettes, denies drinking alcohol or using drugs. Related Data Home Medications ?Medication ?Instructions ?Recorded ?Confirmed ?Last Taken ?Type ascorbate calcium (vitamin C) 500 500 mg PO DAILY 07/29/21 05/12/24 Unknown History mg tablet mecobalamin (vitamin B12) 5,000 5,000 mcg PO DAILY 07/29/21 05/12/24 Unknown History mcg disintegrating tablet omega 6-svz-bep-fish oil 100 2 cap PO BID 07/29/21 05/12/24 Unknown History mg-160 mg-1,000 mg capsule (Fish Oil) Allergies Allergy/AdvReac Type Severity Reaction Status Date / Time No Known Allergies Allergy Verified 10/11/24 00:19 Review of Systems Review of Systems: All systems reviewed & are unremarkable except as noted in HPI and below PMFSH Past Medical History Medical History DM2 (diabetes mellitus, type 2) LENARD (obstructive sleep apnea) Hypertension Hyperlipidemia GERD (gastroesophageal reflux disease) COPD (chronic obstructive pulmonary disease) Overweight Surgical History Surgical History History of left knee surgery History of right knee surgery Family History Family History Mother Thyroid disorder Macular degeneration Father Acute myocardial infarction Social History Social History Social History: 50 pack year, now down to 0.5-1ppd Smoking packs per day: 0.50 Smoking cigarettes per day: 10.0 Years smoked: 25 Smoking pack-years: 12.50 Smoking status: Current every day smoker Tobacco type: cigarettes Second hand tobacco smoke exposure: Yes Alcohol intake: former Lack of Transportation: No Lack of Food: Never True Current Housing: I Have Housing Concerned About Future Housing: No Difficulty Paying Gas/Electric Bills: No Difficulty Paying for Meds: No Currently Unemployed: Decline to Answer Education: Associate Degree Difficulty w/ Childcare or Family Care: No Living arrangements: with family Occupation/Education: other Additional occupation/education comments: Disabled due to COPD,Diabetes Exam Narrative: General appearance: Well-developed, well-nourished Skin: Normal color, poor hygienic condition Head: Normocephalic, nontraumatic Eyes: Clear conjunctiva ENT: Oropharynx normal, ears normal, nose normal Neck: Supple, nontender Chest and respiratory: Airway patent, no respiratory distress, no accessory muscle use, few expiratory wheezing bilaterally Heart: Regular rate/rhythm Abdomen: Soft, nontender, no organomegaly, quiet bowel sounds Musculoskeletal: Normal range of motion, nontender back Neurologic: Alert and oriented ?3, EMERGENCY VETERINARIAN is normal as tested, no gross motor deficit Course Vital Signs Vital signs: Vital Signs Temperature 36.9 C 10/10/24 23:15 Pulse Rate 88 10/10/24 23:15 Respiratory Rate 26 H 10/10/24 23:15 Blood Pressure 132/76 10/10/24 23:15 Pulse Oximetry 85 L 10/10/24 23:15 Oxygen Delivery Room Air 10/10/24 23:15 Oxygen Flow Rate 4 10/10/24 23:15 Temperature 36.9 C 10/10/24 23:15 Pulse Rate 82 10/11/24 00:05 Respiratory Rate 22 H 10/11/24 00:05 Blood Pressure 118/67 10/11/24 00:05 Pulse Oximetry 92 10/11/24 00:05 Oxygen Delivery Room Air 10/11/24 00:05 Oxygen Flow Rate 4 10/10/24 23:15 Medical Decision Making [facility] Narrative Medical decision making narrative: patient presents with chronic shortness of breath, worse than before Vital signs showing respiratory rate 26, oxygenation on room air by pulse oximetry 85% Physical examination showing slight diminution of air entry bilaterally, expiratory wheezing bilaterally. Differential diagnosis includes COPD exacerbation, upper respiratory viral infection, pneumonia, CHF, pleural effusion, Blood workup today includes CBC, CMP, troponin showed Blood gas on room air showed pH of 7.4, PO2 57.3 PC 236.0 oxygen saturation on room air 91.1 Patient tested negative for COVID flu and RSV Chest x-ray showed mild interstitial edema Patient is telling me that there is nobody at home to bring the CPAP machine to the hospital right now. , his telling me that the machine is broken but still blowing air since November 2023. And scheduled to have a new machine November 2024. Dr. Tavarez recommends to keep the patient in our facility and she was able to get hold of patient BiPAP setting 2022 and was 19/15 ,back of breath 12 ,40%, 4 L. Differential Diagnosis Differential Diagnosis: as above Vital Signs Vital Signs: Vital Signs Temperature 36.9 C 10/10/24 23:15 Pulse Rate 88 10/10/24 23:15 Respiratory Rate 26 H 10/10/24 23:15 Blood Pressure 132/76 10/10/24 23:15 Pulse Oximetry 85 L 10/10/24 23:15 Oxygen Delivery Room Air 10/10/24 23:15 Oxygen Flow Rate 4 10/10/24 23:15 Temperature 36.9 C 10/10/24 23:15 Pulse Rate 82 10/11/24 00:05 Respiratory Rate 22 H 10/11/24 00:05 Blood Pressure 118/67 10/11/24 00:05 Pulse Oximetry 92 10/11/24 00:05 Oxygen Delivery Room Air 10/11/24 00:05 Oxygen Flow Rate 4 10/10/24 23:15 Lab Data 10/11/24 00:11 10/11/24 00:11 Labs: Lab Results 10/10/24 10/11/24 Range/Units 23:40 00:11 WBC 11.9 H (4.8-10.8) K/mm3 RBC 6.88 H (4.70-6.10) M/mm3 Hgb 18.2 H (14.0-18.0) g/dL Hct 58.4 H (40.0-54.0) % MCV 84.9 (78.0-102.0) fL MCH 26.5 L (27.0-31.0) pg MCHC 31.2 L (32-36) g/dL RDW 19.0 H (11.6-14.4) % Plt Count 258 (150-420) K/mm3 MPV 9.3 (8.7-11.0) fl Immature Gran % (Auto) 0.8 H (0.0-0.0) % Neut % (Auto) 67.1 (50.0-70.0) % Lymph % (Auto) 22.3 (18.0-42.0) % [place] % (Auto) 7.3 (2.0-11.0) % Eos % (Auto) 1.7 (1.0-6.0) % Baso % (Auto) 0.8 (0.0-1.0) % Lymph # (Auto) 2.64 (1.10-4.50) K/mm3 [place] # (Auto) 0.87 (0.10-0.90) K/mm3 Eos # (Auto) 0.20 (0.02-0.50) K/mm3 Baso # (Auto) 0.09 (0.00-0.10) K/mm3 Abs Immat Gran (auto) 0.09 H (0.00-0.00) K/mm3 Absolute Neuts (auto) 7.97 H (1.70-7.20) K/mm3 Absolute Nucleated RBC 0.00 (0.00-0.00) K/mm3 Nucleated RBC % 0.0 (0-0.0) % PT 10.7 (9.50-12.1) Seconds INR 1.0 APTT 29.4 (23.9-30.70) Sec Sodium 136 L (137-145) mmol/L Potassium 4.0 (3.4-5.0) mmol/L Chloride 98 (98-107) mmol/L Carbon Dioxide 25 (22-30) mmol/L Anion Gap 13 H (4-12) mmol/L BUN 32 H (9-20) mg/dL Creatinine 0.93 (0.7-1.3) mg/dL Estim Creat Clear Calc 93 ml/min Estimated GFR > 60 (59 - ) Glucose 134 H (65-110) mg/dL Calculated Osmolality 290 (285-295) mOsm/kg Lactic Acid 1.3 (0.4-2.0) mmol/L Calcium 9.6 (8.4-10.2) mg/dL Magnesium 2.1 (1.6-2.3) mg/dL Total Bilirubin 0.5 (0.2-1.3) mg/dL AST 24 (17-59) U/L ALT 25 (6-50) U/L Alkaline Phosphatase 81 (38-126) U/L Troponin I 0.012 (0.000-0.034) ng/mL NT-Pro-B Natriuret Pep < 20 (19.9-100) pg/mL Total Protein 7.3 (6.3-8.2) g/dL Albumin 4.4 (3.5-5.1) g/dL Influenza A (RT-PCR) Pending Influenza B (RT-PCR) Pending RSV (RT-PCR) Pending SARS-CoV-2 RNA (RT-PCR) Pending ABG Data ABG results: 10/11/24 00:11 Puncture Site Right radial ABG pH 7.41 ABG pCO2 36.0 ABG pO2 57.3 L ABG HCO3 22.3 L ABG O2 Saturation 91.1 L ABG Base Excess -1.6 L Oxyhemoglobin 83.3 L O2 Delivery Device Room air O2 Liters/Min 0.0 Imaging Data Radiologist's impression: Impressions Chest X-Ray 10/10/24 23:48 Impression: 1: Mild interstitial edema. ECG Data EKG #1: Attestation: I personally reviewed and interpreted this ECG as follows: ECG completion date: 10/11/24 Prior ECG tracings: not available for review Interpretation: normal sinus rhythm at 83 beats per minute, right bundle-branch block Critical Care Time Critical Care Time Critical Care Time: Yes Total Critical Care Time: 30 Discharge Plan Discharge Clinical Impression: COPD exacerbation, Sleep apnea, CPAP use counseling Patient Disposition: Still a Patient Condition: Stable Additional Instructions: admit to hospital Patient Language: Tunisian Prescriptions: No Action ascorbate calcium (vitamin C) 500 mg tablet 500 mg PO DAILY mecobalamin (vitamin B12) 5,000 mcg tablet,disintegrating 5,000 mcg PO DAILY Fish Oil 100-160-1,000 mg capsule 2 cap PO BID fluticasone propion-salmeterol [Advair Diskus] 250-50 mcg/dose blister with device 1 inh inhalation BID Qty: 60 11RF Rx Instructions: rinse and spit albuterol sulfate 90 mcg/actuation HFA aerosol inhaler 1 - 2 inh inhalation Q4-6H PRN (Reason: shortness of breath or wheezing) Qty: 8.5 2RF (DME) insulin syringe-needle U-100 [TRUEplus Insulin] 0.3 mL 31 gauge x 5/16 syringe See Rx Instructions .ROUTE .COMPLEX Qty: 100 5RF Dose Instruction: USE 4 TIMES A DAY DIRECTED Rx Instructions: USE 4 TIMES A DAY DIRECTED (DME) blood-glucose meter [OneTouch Ultra2 Meter] [facility] [place] Rx Instructions .Route Qty: 1 0RF Rx Instructions: As directed fluticasone propionate 50 mcg/actuation spray,suspension 1 spray intranasal BID Qty: 16 11RF Rx Instructions: administer into each nostril insulin glargine [Lantus Solostar U-100 Insulin] 100 unit/mL (3 mL) insulin pen 30 unit subcut QHS Qty: 15 8RF (DME) OneTouch Ultra Test Strip See Rx Instructions .ROUTE .COMPLEX Qty: 100 6RF Dose Instruction: TEST 3 TIMES A DAY Rx Instructions: TEST 3 TIMES A DAY Incruse Ellipta 62.5 mcg/actuation blister with device See Rx Instructions .ROUTE .COMPLEX Qty: 30 11RF Dose Instruction: INHALE 1 PUFF DAILY Rx Instructions: INHALE 1 PUFF DAILY bupropion HCl 150 mg tablet sustained-release 12 hr See Rx Instructions .ROUTE .COMPLEX Qty: 180 3RF Dose Instruction: TAKE 1 TABLET BY MOUTH TWICE A DAY Rx Instructions: TAKE 1 TABLET BY MOUTH TWICE A DAY atorvastatin 40 mg tablet See Rx Instructions .ROUTE .COMPLEX Qty: 90 0RF Dose Instruction: TAKE 1 TABLET BY MOUTH EVERYDAY AT BEDTIME Rx Instructions: TAKE 1 TABLET BY MOUTH EVERYDAY AT BEDTIME omeprazole 20 mg capsule,delayed release(DR/EC) See Rx Instructions .ROUTE .COMPLEX Qty: 90 3RF Dose Instruction: TAKE 1 CAPSULE BY MOUTH EVERY DAY Rx Instructions: TAKE 1 CAPSULE BY MOUTH EVERY DAY lisinopril-hydrochlorothiazide 20-25 mg tablet See Rx Instructions .ROUTE .COMPLEX Qty: 90 3RF Dose Instruction: TAKE 1 TABLET BY MOUTH EVERY DAY Rx Instructions: TAKE 1 TABLET BY MOUTH EVERY DAY ferrous sulfate 325 mg (65 mg iron) tablet 325 mg PO DAILY Qty: 90 0RF Jardiance 25 mg tablet See Rx Instructions .ROUTE .COMPLEX Qty: 90 0RF Dose Instruction: TAKE 1 TABLET BY MOUTH EVERY DAY Rx Instructions: TAKE 1 TABLET BY MOUTH EVERY DAY amlodipine 10 mg tablet See Rx Instructions .ROUTE .COMPLEX Qty: 90 0RF Dose Instruction: TAKE 1 TABLET BY MOUTH EVERY DAY Rx Instructions: TAKE 1 TABLET BY MOUTH EVERY DAY Ozempic 1 mg/dose (4 mg/3 mL) pen injector 1 mg subcut WEEKLY Qty: 3 0RF (DME) lancets [OneTouch Delica Plus Lancet] 33 gauge misc See Rx Instructions .ROUTE .COMPLEX Qty: 100 5RF Dose Instruction: USE 1 TO TEST BLOOD SUGAR THREE TIMES DAILY NEEDED Rx Instructions: USE 1 TO TEST BLOOD SUGAR THREE TIMES DAILY NEEDED Eliquis 5 mg tablet See Rx Instructions .ROUTE .COMPLEX Qty: 180 1RF Dose Instruction: 5 MG ORALLY TWICE A DAY Rx Instructions: 5 MG ORALLY TWICE A DAY (DME) pen needle, diabetic [TechLITE Pen Needle] 31 gauge x 5/16 needle See Rx Instructions .ROUTE .COMPLEX Qty: 100 5RF Dose Instruction: USE DIRECTED Rx Instructions: USE DIRECTED metformin 1,000 mg tablet See Rx Instructions .ROUTE .COMPLEX Qty: 180 2RF Dose Instruction: TAKE 1 TABLET BY MOUTH TWICE A DAY Rx Instructions: TAKE 1 TABLET BY MOUTH TWICE A DAY montelukast 10 mg tablet See Rx Instructions .ROUTE .COMPLEX Qty: 90 0RF Dose Instruction: TAKE 1 TABLET BY MOUTH EVERY DAY Rx Instructions: TAKE 1 TABLET BY MOUTH EVERY DAY fenofibrate 160 mg tablet See Rx Instructions .ROUTE .COMPLEX Qty: 90 0RF Dose Instruction: TAKE 1 TABLET BY MOUTH EVERY DAY Rx Instructions: TAKE 1 TABLET BY MOUTH EVERY DAY Follow-up/Referrals: Scott Dent MD [Primary Care Provider, Internal Medicine]
--- OUTSIDE RECORDS SUMMARY | 2024-10-10 23:18 | XMS_ITS | Clinical Summary ---
Author Organization [facility] Address [address] [place] [address] Care Team Providers Care Behavioral Assistant Name Role Phone Jarrod Morel MD Unavailable [phone] Ian Vinson DO Primary Care Provider [phone] Allergies No known active allergies Medications famotidine [...] Fish Oil-Cholecalcif elma (FISH OIL + D3) 5420-9551 MG-UNIT Cap Take 1 capsule by mouth [...] Current smoker 06/19/2019 DVT (deep venous thrombosis) ([facility]) 1 03/11/2016 Sleep apnea 01/09/2017 HTN (hypertension) 01/09/2017 COPD (chronic obstructive pu lmonary disease) ([facility]) 01/09/2017 Diabetes ([facility]) 01/09/2017 Pulmonary embolism ([facility]) 01/09/2017 Class 3 obesity without serious comorbidity in a dult 01/09/2017 Hyperlipidemia Immunizations Immunization Administration Dates Next Due Influenza (Generic) 1960 Pneumococcal (Pneumovax 23) 1960 Family History Medical History Relation Comments Coronary artery disease Father Coronary artery disease Mother Coronary artery disease Other prematur e Relation Status Comments Father Alive [place] with CABG at age 40, cataracts Mother [...] to Health Maintenance Insurance MEDICARE Care Teams Behavioral Assistant Relationship Specialty Start Date End Date Ian Vinson DO [address] [place] [address] PCP - General FAMILY PRACTICE 06/18/19 Jarrod Morel MD [address] [place] [address] [place] Waterworks Supervisor CARDIOVASCULAR DISEASE 07/26/16
--- NOTE | 2024-10-10 23:25 | PC.NURSE ---
DR PEÑA AT THE BEDSIDE
--- NOTE | 2024-10-10 23:26 | PC.NURSE ---
DR PEÑA REQUESTED OXYGEN BE TURNED OFF FOR ABG TEST. DONE
--- NOTE | 2024-10-10 23:27 | ECG_ITS ---
Test Date: 2024-10-10 23:33:38 Measurements Intervals [place] Rate: 83 P: 61 MN: 190 QRS: -88 QRSD: 162 T: 34 QT: 393 QTc: 464 Interpretive Statements SINUS RHYTHM RIGHT BUNDLE BRANCH BLOCK LEFT ANTERIOR FASCICULAR BLOCK ABNORMAL ECG No previous ECG available for comparison Electronically Signed On 10-11-2024 07:01:45 CDT by Aidan Blood D.O.
--- NOTE | 2024-10-10 23:30 | PC.NURSE ---
VICK STUART, AT THE BEDSIDE FOR EKG
[2024-10-10 23:31] VITALS: BP 117/67; PULSE 82; RESP 22; O2SAT 88
--- NOTE | 2024-10-10 23:31 | PC.NURSE ---
MARIXA WITH LAB NOTIFIED OF BLOOD WORK ORDERS
--- NOTE | 2024-10-10 23:32 | PC.NURSE ---
DR PEÑA AT THE BEDSIDE
--- NOTE | 2024-10-10 23:34 | PC.NURSE ---
MARIXA Castillo LAB AT THE BEDSIDE
--- NOTE | 2024-10-10 23:35 | PC.NURSE ---
JOSEP WITH RADIOLOGY OUTSIDE THE ROOM
--- NOTE | 2024-10-10 23:51 | PC.NURSE ---
WAITING ON ABG TO BE COMPLETED BEFORE TURNING OXYGEN BACK ON AT [address] DIOR REQUEST. CURRENTLY PATIENT IS 89% ON ROOM AIR.
[2024-10-11] VITALS (15 sets, daily range): BP systolic 118–137; BP diastolic 58–78; PULSE 76–95; RESP 17–27; TEMP 36.3–36.9; O2SAT 84–94; BMI 49.5
--- NOTE | 2024-10-11 00:03 | PC.NURSE ---
Collected PCR Swab and handed to Diana in room @ [id number]
--- NOTE | 2024-10-11 00:07 | PC.NURSE ---
MARIXA VOGT CONTINUES TO BE AT THE BEDSIDE. HAS NOT OBTAINED ABG AT THIS TIME. PATIENT CONTINUES TO BE ON ROOM AIR. 83%. DR PEÑA AWARE
--- OUTSIDE RECORDS SUMMARY | 2024-10-11 00:15 | XMS_ITS | Encounter Summary ---
Author Organization [facility] Address [facility] [place] [address] Care Team Providers Care Full Roll Inspector Name Role Phone Zafar Loaiza MD Primary Care Provider [phone] Jarrod Morel MD Unavailable [phone] Ian Vinson DO Primary Care Provider [phone] Encounter Details Date Type Department Care Team (Late Contact Info) Description 09/10/2017 Abstract [facility] [address] [place] [address] Jarrod Morel MD [address] [place] [address] Social History Tobacco Use Types [...] on filedocumented in this encounter Care Teams Full Roll Inspector Relationship Specialty Start Date End Date Zafar Loaiza MD [address] [place] [address] PCP - General FAMILY PRACTICE 07/26/16 06/17/19 Ian Vinson DO [address] [place] [address] PCP - General FAMILY PRACTICE 06/18/19 Jarrod Morel MD [address] [place] [address] Warren Bomb Loader CARDIOVASCULAR DISEASE 07/26/16 documented as of this encounter
--- OUTSIDE RECORDS SUMMARY | 2024-10-11 00:16 | XMS_ITS | Encounter Summary ---
Author Organization [facility] Address [address] [place] [address] Care Team Providers Care Gun Synchronizer Name Role Phone Zafar Loaiza MD Primary Care Provider [phone] Jarrod Morel MD Unavailable [phone] Ian Vinson DO Primary Care Provider [phone] Encounter Details Date Type Department Care Team (Late st Contact Info) Description 07/01/2015 Abstract [facility] [address] [place] [address] Jarrod Morel MD [address] [place] [address] Social History Tobacco Use Types [...] on filedocumented in this encounter Care Teams Gun Synchronizer Relationship Specialty Start Date End Date Zafar Loaiza MD [address] [place] [address] PCP - General FAMILY PRACTICE 07/26/16 06/17/19 Ian Vinson DO [address] [place] [address] PCP - General FAMILY PRACTICE 06/18/19 Jarrod Morel MD [address] [place] [id number] [place] Criminal Investigator CARDIOVASCULAR DISEASE 07/26/16 documented as of this encounter
--- OUTSIDE RECORDS SUMMARY | 2024-10-11 00:16 | XMS_ITS | Clinical Summary ---
Author Organization [facility] Address [address] [place] [address] Care Team Providers Care Assistant Import Manager Name Role Phone Jarrod Morel MD Unavailable [phone] Ian Vinson DO Primary Care Provider [phone] Allergies No known active allergies Medications famotidine [...] Fish Oil-Cholecalcif elma (FISH OIL + D3) 8130-7749 MG-UNIT Cap Take 1 capsule by mouth [...] Current smoker 06/19/2019 DVT (deep venous thrombosis) ([facility]) 1 03/11/2016 Sleep apnea 01/09/2017 HTN (hypertension) 01/09/2017 COPD (chronic obstructive pu lmonary disease) ([facility]) 01/09/2017 Diabetes ([facility]) 01/09/2017 Pulmonary embolism ([facility]) 01/09/2017 Class 3 obesity without serious comorbidity in a dult 01/09/2017 Hyperlipidemia Immunizations Immunization Administration Dates Next Due Influenza (Generic) 1960 Pneumococcal (Pneumovax 23) 1960 Family History Medical History Relation Comments Coronary artery disease Father Coronary artery disease Mother Coronary artery disease Other prematur e Relation Status Comments Father Alive RI with CABG at age 40, cataracts Mother [...] to Health Maintenance Insurance MEDICARE Care Teams Assistant Import Manager Relationship Specialty Start Date End Date Ian Vinson DO [address] [place] [address] PCP - General FAMILY PRACTICE 06/18/19 Jarrod Morel MD [address] [place] [address] Beatrice Academic Administrator CARDIOVASCULAR DISEASE 07/26/16
[2024-10-11 00:24] LABS: HCO3 ABG 22.3 mmol/L (23-29); Oxygen Saturation ABG 91.1 % (95-97); PCO2 ABG 36.0 mmHg (35-45); PO2 ABG 57.3 mmHg (80-90)
[2024-10-11 00:25] LABS: Liters per Minute 0.0 LPM; Modified Allen's Test Pass; Site Drawn RIGHT RADIAL
--- NOTE | 2024-10-11 00:28 | PC.NURSE ---
PATIENT RESTING QUIETLY ON STRETCHER. AWARE THAT BLOOD WORK IS IN PROGRESS. DENIES ANY NEEDS AT THIS TIME. OXYGEN TURNED ON AT 2 LITERS. SPO2 AT 90% AT THIS TIME. CALL LIGHT IN REACH
[2024-10-11 00:29] LABS: Hematocrit 58.4 % (40.0-54.0); Hemoglobin 18.2 g/dL (14.0-18.0); Immature Granulocyte Percent A 0.8 % (0.0-0.0); Lymphocytes Absolute Auto 2.64 K/mm3 (1.10-4.50); Mean Corpuscular HGB Conc 31.2 g/dL (32-36); Mean Corpuscular Hemoglobin 26.5 pg (27.0-31.0); Mean Corpuscular Volume 84.9 fL (78.0-102.0); Nucleated Red Blood Cells Absolute Auto 0.00 K/mm3 (0.00-0.00); Nucleated Red Blood Cells Perc 0.0 % (0-0.0); Platelet Count Result 258 K/mm3 (150-420); Red Blood Count 6.88 M/mm3 (4.70-6.10); White Blood Count 11.9 K/mm3 (4.8-10.8)
[2024-10-11 00:31] LABS: Alanine Aminotransferase 25 U/L (6-50); Albumin Level 4.4 g/dL (3.5-5.1); Alkaline Phosphatase 81 U/L (38-126); Anion Gap 13 mmol/L (4-12); Aspartate Amino Transferase 24 U/L (17-59); Bilirubin,Total 0.5 mg/dL (0.2-1.3); Blood Urea Nitrogen 32 mg/dL (9-20); Calcium 9.6 mg/dL (8.4-10.2); Carbon Dioxide 25 mmol/L (22-30); Chloride 98 mmol/L (98-107); Estimated CRCL calculation 93 ml/min; Estimated Glomerular Filt Rate > 60; Glucose 134 mg/dL (65-110); Magnesium 2.1 mg/dL (1.6-2.3); Osmolality Calculated 290 mOsm/kg (285-295); Potassium 4.0 mmol/L (3.4-5.0); Sodium 136 mmol/L (137-145); Total Protein 7.3 g/dL (6.3-8.2)
[2024-10-11] MEDS: IPRATROPIUM 0.5 MG/ALBUTEROL SULFATE 2.5 MG AMPUL.NEB 3 ML INHALATION ×4 (00:37→18:34)
[2024-10-11 00:38] LABS: INR 1.0; Partial Thromboplastin Time 29.4 Sec (23.9-30.70); Prothrombin Time 10.7 Seconds (9.50-12.1)
[2024-10-11 00:39] LABS: NT Pro B Type Natriuretic Pept < 20 pg/mL (19.9-100)
[2024-10-11 00:43] LABS: Troponin I 0.012 ng/mL (0.000-0.034)
--- NOTE | 2024-10-11 00:48 | PC.NURSE ---
NOTIFIED LARISA JAIME, CHARGE NURSE, OF PLAN FOR ADMISSION. SHE WILL CALL BACK WITH ROOM ASSIGNMENT
--- NOTE | 2024-10-11 00:59 | PC.NURSE ---
PATIENT UNABLE TO GET HIS CPAP OR THE SETTINGS FOR HIS CPAP. SPOKE WITH FANTASMA FROM [facility]. WILL PLAN TO CALL [facility]
--- NOTE | 2024-10-11 01:00 | PC.NURSE ---
PLAN IS TO NOW TRANSFER TO [facility]. FLOOR HAS BEEN NOTIFIED.
--- NOTE | 2024-10-11 01:24 | PC.NURSE ---
FLOOR WAS NOTIFIED THAT PATIENT IS TO REMAIN HERE AT [facility] FOR OVERNIGHT BIPAP TO REPLACE BROKEN CPAP AT HOME. SETTINGS ON CPAP PER DR KOROMA ARE . SPOKE WITH LARISA JAIME ON MED SURG, PATIENT TO GO TO ROOM 205.
--- NOTE | 2024-10-11 01:25 | PC.NURSE ---
SPOKE WITH SONALI FROM RT. SHE IS ON HER WAY IN TO SET UP BIPAP FOR PATIENT GOING TO ROOM 205.
--- NOTE | 2024-10-11 01:27 | PC.NURSE ---
PATIENT REPORTS THAT HIS INSURANCE REFUSES TO REPLACE CPAP MACHINE AT HOME. HE IS TO WAIT UNTIL NEXT YEAR FOR REPLACEMENT CPAP MACHINE.
[2024-10-11 01:28] LABS: Influenza A QL RT-PCR Negative (Negative); Influenza B QL RT-PCR Negative (Negative); RSV RNA, RT-PCR Negative (Negative); SARS-CoV-2 RNA PCR Negative (Negative)
--- NOTE | 2024-10-11 01:38 | PC.NURSE ---
HUMERA BAIG printed and reviwed.
--- NOTE | 2024-10-11 01:39 | PC.NURSE ---
EXERTIONAL DYSPNEA AFTER USING URINAL. SPO2 DECREASED TO 84% ON 2 LITERS NC. ONCE RETURNED TO THE BED AND QUIETED DOWN, SPO2 INCREASED TO 91% ON 2 LITERS
[2024-10-11] MEDS: NICOTINE (*PBKC) 21 MG PATCH 1 PATCH TRANSDERM ×2 (01:46→10:09)
--- NOTE | 2024-10-11 02:06 | ADMGEN ---
This patient, Carlos Mak Jr., was admitted to 2nd Floor Room 205-2. Patient oriented to hospital policies and general routines including ID bracelet, bed and alarms, visiting hours, pain management, procedures, bathroom and other care routines, personal items, smoking policy, room service/diet, and visiting hours. Information on how to activate the Rapid Response Team has been discussed. Patient are encouraged to report perceived risks to care and to ask questions if they do not understand what they are told or what they should do.
--- NOTE | 2024-10-11 08:46 | P.HP_ITS ---
H&P: HPI History of Present Illness Date/Time: 10/11/24 08:46 Chief Complaint: SOB Narrative: Patient is a 64-year-old male who presented to the emergency department with complaints of worsening shortness a breath. Patient has past medical history COPD wear CPAP at night, previous DVT and PEs, HTN, HLD, GERD and diabetes. patient stated he had woke up that morning prior to arrival to the emergency department and throughout the day he continued to have worsening shortness a breath attempted to use his inhalers with no relief. States his CPAP appears to not be working correctly and has it scheduled for a new 1 to be delivered this month. Patient also reports he has quite a bit sinus congestion with pressure with continued sinus drainage. patient denied any chest pain except secondary to when he coughs, fever, chills, or dizziness. patient states he does not wear supplemental oxygen at home at this time does report a is a current smoker. In the ED: upon arrival to the emergency department patient's oxygen saturation was at 85% on room air and he was tachypneic at 26 RR per medical chart. Initial labs with a WBC of 11.9 hemoglobin 18.2, ABGs with a PO2 of 57.3/ pCO2 36/ pH 7.41. CXR showing Mild interstitial edema. The ER physician called [facility] for possible transfer due to patient's respiratory status however he had spoken with Dr. Tavarez who found at patient's previous BiPAP settings from 2022 and they both agreed patient could be admitted here at [facility] placed on BiPAP overnight. Patient was evaluated following morning currently on 2 L supplemental oxygen still with aggressive cough currently productive still reporting a moderate amount sinus drainage and only chest pain with cough continued shortness of breath. Review of Systems Review of Systems: All systems reviewed & are unremarkable except as noted in HPI and below PMFSH Past Medical History Medical History DM2 (diabetes mellitus, type 2) LENARD (obstructive sleep apnea) Hypertension Hyperlipidemia GERD (gastroesophageal reflux disease) COPD (chronic obstructive pulmonary disease) Overweight Surgical History Surgical History History of left knee surgery History of right knee surgery Family History Family History Mother Thyroid disorder Macular degeneration Father Acute myocardial infarction Social History Social History Social History: 50 pack year, now down to 0.5-1ppd Smoking packs per day: 0.5 Smoking cigarettes per day: 10.0 Years smoked: 25 Smoking pack-years: 12.50 Smoking status: Current every day smoker Tobacco type: cigarettes Second hand tobacco smoke exposure: Yes Alcohol intake: former Substance use: never Lack of Transportation: No Lack of Food: Never True Current Housing: I Have Housing Concerned About Future Housing: No Difficulty Paying Gas/Electric Bills: No Difficulty Paying for Meds: No Currently Unemployed: No Education: Associate Degree Difficulty w/ Childcare or Family Care: No Living arrangements: with family Occupation/Education: other Additional occupation/education comments: Disabled due to COPD,Diabetes Spiritual care concerns: Yes (Pastor cruz) Meds Home Medications and Allergies Home Medications ?Medication ?Instructions ?Recorded ?Confirmed ?Type ascorbate calcium (vitamin C) 500 500 mg PO DAILY 07/2010/11/24 History mg tablet mecobalamin (vitamin B12) 5,000 5,000 mcg PO DAILY 12/1010/11/24 History mcg disintegrating tablet omega [id number]-fish oil 100 2 cap PO BID 07/29/21 History mg-160 mg-1,000 mg capsule (Fish Oil) albuterol sulfate 90 mcg/actuation 1 - 2 inh inhalatio n Q4-6H PRN 09/15/22 10/11/24 Rx aerosol inhaler shortness of breath or wheez ing #8.5 grams insulin syringe-needle U-100 0.3 #100 ea 09/18/2209/20 Rx mL 31 gauge x 5/16 (TRUEplus Insulin) blood-glucose meter (TheLaddersTouch #1 ea 11/29/22 10/11/24 Rx Ultra2 Meter) fluticasone propionate 50 1 spray intranasal BID #16 g carrie 12/13/22 10/11/24 Rx mcg/actuation nasal spray,suspension blood sugar diagnostic (TheLaddersTouch #100 strips 09/17/23 10/11/24 Rx Ultra Test strips) umeclidinium 62.5 mcg/actuation See Rx Instructions .R oute 09/18/23 10/11/24 Rx blister powder for inhalation .COMPLEX #30 ea (Incruse Ellipta) fluticasone 250 mcg-salmeterol 50 1 inh inhalation BID #60 ea 10/05/23 10/11/24 Rx mcg/dose blistr powdr for inhalation (Advair Diskus) bupropion HCl 150 mg tablet,12 hr See Rx Instructions .Route 12/18/23 10/11/24 Rx sustained-release .COMPLEX #180 tabs atorvastatin 40 mg tablet See Rx Instructions .Route 1 10/11/24 Rx .COMPLEX #90 tabs lisinopril 20 See Rx Instructions .Route 1 10/11/24 Rx mg-hydrochlorothiazide 25 mg tablet .COMPLEX #90 tabs omeprazole 20 mg capsule,delayed See Rx Instructions . Route 12/20/23 10/11/24 Rx release .COMPLEX #90 caps amlodipine 10 mg tablet See Rx Instructions .Route 0 03/17/24 10/11/24 Rx .COMPLEX #90 tabs empagliflozin 25 mg tablet See Rx Instructions .Route 03/17/24 10/11/24 Rx (Jardiance) .COMPLEX #90 tabs semaglutide 1 mg/dose (4 mg/3 mL) 1 mg (0.75 mL) subcu t WEEKLY #3 mL 03/25/24 10/11/24 Rx subcutaneous pen injector (Ozempic) lancets 33 gauge (OneTouch Delica #100 ea 04/15/24 Rx Plus Lancet) apixaban 5 mg tablet (Eliquis) See Rx Instructions .Ro cate 05/12/24 10/11/24 Rx .COMPLEX #180 tabs pen needle, diabetic 31 gauge x #100 ea 05/13/2410/11 Rx 5/16 (TechLITE Pen Needle) metformin 1,000 mg tablet See Rx Instructions .Route 0 06/18/24 10/11/24 Rx .COMPLEX #180 tabs montelukast 10 mg tablet See Rx Instructions .Route 0 09/11/24 10/11/24 Rx .COMPLEX #90 tabs fenofibrate 160 mg tablet See Rx Instructions .Route 0 09/12/24 10/11/24 Rx .COMPLEX #90 tabs cholecalciferol (vitamin D3) 50 50 mcg PO DAILY 10/11/24 History mcg (2,000 unit) capsule (D3-2000) insulin glargine 100 unit/mL (3 26 unit subcut QAM 10/11/24 History mL) subcutaneous pen (Lantus Solostar U-100 Insulin) Allergies Allergy/AdvReac Type Severity Reaction Status Date / Time No Known Allergies Allergy Verified 10/11/24 00:19 Vital Signs Vital Signs - 24 hr 10/10/24 23:15 10/10/24 23:15 10/10/24 23:31 Temperature 98.4 F Pulse Rate 88 82 Respiratory Rate 26 H 22 H Blood Pressure 132/76 117/67 Pulse Oximetry 85 L 91 88 L Oxygen Delivery Room Air Nasal Cannula Room Air Oxygen Flow Rate 4 10/11/24 00:05 10/11/24 00:30 10/11/24 01:01 Temperature Pulse Rate 82 80 81 Respiratory Rate 22 H 20 Blood Pressure 118/67 123/65 125/70 Pulse Oximetry 92 88 L 91 Oxygen Delivery Room Air Nasal Cannula Nasal Cannula Oxygen Flow Rate 2 2 10/11/24 01:31 10/11/24 01:35 10/11/24 01:39 Temperature Pulse Rate 86 Respiratory Rate 24 H 27 H 24 H Blood Pressure 118/63 Pulse Oximetry 92 84 L 91 Oxygen Delivery Nasal Cannula Nasal Cannula Nasal Cannula Oxygen Flow Rate 2 2 2 10/11/24 01:55 10/11/24 02:35 10/11/24 07:04 Temperature 97.9 F Pulse Rate 77 78 Respiratory Rate 20 20 Blood Pressure 129/58 L Pulse Oximetry 93 91 94 Oxygen Delivery Room Air BiPAP Oxygen Flow Rate 4 10/11/24 08:00 Temperature 98.5 F Pulse Rate 90 Respiratory Rate 19 Blood Pressure 137/74 Pulse Oximetry 90 Oxygen Delivery Nasal Cannula Oxygen Flow Rate 2 Exam Const: General: comfortable and no acute distress HENMT: Mouth: Yes moist mucous membranes Eyes: General: appearance normal, both eyes and all related structures Sclera: sclerae normal Pupils: Equal, round and reactive pupils present Neck: Neck: supple and no JVD Resp: Auscultation: rhonchi upper bilaterally and wheezes expiratory wheezes and throughout Other: moderate to severe productive cough, Tachypnea Cardio: Rate: regular rate Rhythm: regular rhythm GI: GI Palp: Yes Soft to palpation Auscultation: normal bowel sounds Skin: General skin exam: normal color and no rashes or lesions noted Wounds: no wounds Neuro: Speech: normal speech Motor exam (neuro): 5/5 motor strength present throughout Sensory Exam: normal sensation Extrem: General: normal to inspection Other: Left hand with tips of first 4 digits missing Psych: Mental Status: mental status grossly normal Affect: normal affect H&P: Results Labs Labs: Short CBC 10/11/24 Range/Units 00:11 WBC 11.9 H (4.8-10.8) K/mm3 Hgb 18.2 H (14.0-18.0) g/dL Hct 58.4 H (40.0-54.0) % Plt Count 258 (150-420) K/mm3 BMP 10/11/24 00:11 Sodium 136 L Potassium 4.0 Chloride 98 Carbon Dioxide 25 BUN 32 H Creatinine 0.93 Glucose 134 H Calcium 9.6 Cardiac Enzymes 10/11/24 Range/Units 00:11 Troponin I 0.012 (0.000-0.034) ng/mL Liver Function 10/11/24 Range/Units 00:11 Total Bilirubin 0.5 (0.2-1.3) mg/dL AST 24 (17-59) U/L ALT 25 (6-50) U/L Alkaline Phosphatase 81 (38-126) U/L Albumin 4.4 (3.5-5.1) g/dL Imaging Chest x-ray: Radiologist's impression: [place] [address] XRay Report Signed Patient: Carlos Mak Jr. : 1960 MR#: [id number] Age: 64 Acct:[id number] Loc: [facility] ADM Date: 10/10/24Attending Dr: Ordering Physician: Darren Romero MD Date of Service: 10/10/24 Procedure(s): XR chest 1V portable Accession Number(s): [id number] cc: Darren Romero MD; Scott Dent MD~ XR chest 1V portable 10/10/2024 23:41 Indication: Shortness of breath Procedure: AP portable chest Comparison: Comparison to multiple prior studies sequentially, with oldest reviewed study dated 10/24/2013. Findings: Heart size normal. Mild interstitial edema. No pleural effusion or pneumothorax. Impression: 1: Mild interstitial edema. Assessment and Plan Assessment and plan (1) Acute respiratory failure with hypoxia: Code(s): J96.01 - Acute respiratory failure with hypoxia Status: Acute Assessment and Plan: patient typically uses CPAP at night however reports he is not working properly states he has had an excessive amount of sinus drainage sinus pressure. Patient placed on BiPAP per BiPAP setting 2022 and was ,back of breath 12 ,40%, 4 L. * Bipap at night * currently on supplemental oxygen 2 L maintain 92% attempt to wean as tolerated if unable to wean will need home O2 walk study * D-dimer pending if elevated will get CTA to rule out any PE patient with history of previous PEs and DVTs but is on Eliquis currently * Bronchodilators. * incentive spirometry while awake. * steroids i 40mg IVP Q8hr initiated likely transitioned to oral prednisone 40 mg daily tomorrow * azithromycin 500mg PO * guaifenesin b.i.d. * supplemental oxygen therapy to maintain oxygen 92% * COVID/RSV/Influenza negative * Smoking cessation counseling done * Follow-up with analysis director as an outpatient (2) COPD exacerbation: Code(s): J44.1 - Chronic obstructive pulmonary disease with (acute) exacerbation Status: Acute Assessment and Plan: SEE ABOVE #1 (3) Sinus infection: Code(s): J32.9 - Chronic sinusitis, unspecified Status: Acute Assessment and Plan: patient with sinus pressure and moderate to severe drainage * place patient on oral Augmentin (4) Hypertension: Code(s): I10 - Essential (primary) hypertension Status: Acute Assessment and Plan: * continue patient's amlodipine, lisinopril and hydrochlorothiazide * BP per unit protocol (5) Hyperlipidemia: Code(s): E78.5 - Hyperlipidemia, unspecified Status: Acute Assessment and Plan: * resume patient's atorvastatin he will need to bring in his fenofibrate we do not have formulated (6) History of DVT in adulthood: Code(s): Z86.718 - Personal history of other venous thrombosis and embolism Status: Acute Assessment and Plan: patient reports he has had history of DVTs with PEs originally on Coumadin his transitioned to Eliquis last year * low suspicion of PE but will get D-dimer if elevated get CTA to rule out a PE * resumed his Eliquis (7) DM2 (diabetes mellitus, type 2): Code(s): E11.9 - Type 2 diabetes mellitus without complications Status: Acute Assessment and Plan: * holding patient's metformin and Ozempic * resumed his Lantus 26 units * low-dose SSI * Accu-Cheks a.c. HS * diabetic diet * hypoglycemic protocol (8) GERD (gastroesophageal reflux disease): Code(s): K21.9 - Gastro-esophageal reflux disease without esophagitis Status: Acute Assessment and Plan: * patient takes omeprazole at home transitioned to pantoprazole (9) LENARD (obstructive sleep apnea): Code(s): G47.33 - Obstructive sleep apnea (adult) (pediatric) Status: Acute Assessment and Plan: patient wears CPAP at night has new when being delivered this month * will continue with BiPAP at night while inpatient (10) Tobacco use: Code(s): Z72.0 - Tobacco use Status: Acute Assessment and Plan: patient is a current everyday smoker * nicotine patch provided * remove at night * educated on smoking cessation Plan Code status: Full code per patient DVT prophylaxis: Eliquis Stress ulcer prophylaxis: Protonix 40 daily patient usually uses omeprazole for GERD PT/OT notes: patient is ambulatory on own Disposition: patient was admitted to the medical unit for further treatment of acute respiratory failure with hypoxia secondary to COPD exacerbation and sinus infection will continue with BiPAP at night and as needed currently on supplemental oxygen wean as tolerated may need walk study prior to discharge plan is to return home when medically stable. Quality VTE Prophylaxis VTE prophylaxis: pharmacologic ordered -Patient's previous records reviewed on admission -ER notes reviewed in detail on admission -discussed all findings and current treatment plan with patient/Family/POA -Consultations reviewed for recommendations -Patient's disposition for safe discharge discussed with nurse case management Dictation performed by [employer] direct speech recognition software, therefore psychiatric aide variants and typographical errors may occur. Hospitalist [facility] Advance Care Plan I have confirmed that the patient's Advanced Care Plan is present, code status is documented, or surrogate decision maker is listed in patient medical record.: Yes Medication Reconciliation I have utilized all available resources to obtain, update and review the patients current medications (includes all prescriptions, OTC, herbals, cannabis, and nutritional supplements).: Yes The patient is not eligible for med reconciliation; the patient is in a emergent medical situation where delaying treatment would jeopardize the patients health.: No
[2024-10-11] MEDS: SALMET XINAFT/FLUTIC PROPIN 250 MCG/50 MCG INH CAP 1 PUFF INHALATION ×2 (10:08→17:49)
[2024-10-11] MEDS: FLUTICASONE PROPIONATE 0.05% NA SPR 16 GM BTL (*BKC) 1 SPRAY NASAL ×2 (10:09→17:49)
[2024-10-11] MEDS: CHOLECALCIFEROL (VITAMIN D3) 25 MCG (1,000 UNITS) TABLET 50 MCG PO (10:10)
[2024-10-11] MEDS: guaiFENesin 12 HR 600 MG TABCR 1200 MG PO ×2 (10:10→20:44)
[2024-10-11] MEDS: ATORVASTATIN 40 MG TABLET PO (10:11)
[2024-10-11] MEDS: AZITHROMYCIN 250 MG TABLET 500 MG PO (10:11)
[2024-10-11] MEDS: APIXABAN 2.5 MG TABLET 5 MG PO ×2 (10:11→20:44)
[2024-10-11] MEDS: LORATADINE 10 MG TABLET PO (10:12)
[2024-10-11] MEDS: EMPAGLIFLOZIN 25 MG TABLET PO (10:12)
[2024-10-11] MEDS: PANTOPRAZOLE 40 MG TABLET PO (10:12)
[2024-10-11] MEDS: buPROPion HCL SR (12 HR) 150 MG TAB PO ×2 (10:12→20:44)
[2024-10-11] MEDS: ASCORBIC ACID 500 MG TABLET PO (10:12)
[2024-10-11] MEDS: INSULIN GLARGINE (*BKC) 1,000 UNITS/10 ML VIAL 26 UNITS SUB-Q (10:13)
[2024-10-11] MEDS: UMECLIDINIUM BROMIDE 62.5 MCG ELLIPTA 1 PUFF INHALATION (10:31)
[2024-10-11] MEDS: INSULIN HUMAN LISPRO (*BKC) 1,000 UNITS/10 ML VIAL SUB-Q ×2 (11:57→17:45)
[2024-10-11] MEDS: BENZOCAINE/MENTHOL (*BKC) LOZENGE 1 LOZENGE PO ×2 (18:03→21:03)
[2024-10-11 19:10] LABS: Strep Group A RT-PCR NOT DETECTED (Negative)
--- NOTE | 2024-10-11 23:55 | PC.NURSE ---
Pt assited with adjusting bipap mask.
[2024-10-12] VITALS (10 sets, daily range): BP systolic 112–127; BP diastolic 44–71; PULSE 84–100; RESP 17–20; TEMP 36.3–36.6; O2SAT 88–94
--- NOTE | 2024-10-12 | CONSULT_PTH ---
PATIENT: Carlos Mak Jr. LOC: [facility] U#:[id number] AGE/SX: 64/M ROOM: [facility] RE10/11/[address]: Luis Aguilera MD : 1960 BED: 2 DIS: 10/13/2024 SPEC #: [id number] RECD: 10/12/24 07:42 STATUS: SOUClaudia REQ #: [id number] EVA: 10/12/24 00:[address]: Aj Aguilera DEPT: [facility] Consult RECD BY: Patrizia Chang MLT, ([facility]) ENTERED: 10/12/24 07:42 SP TYPE: Consult OTHR DR: Scott Dent MD Tissues: A - Peripheral Smear Procedures: Hematology Consult
[2024-10-12] MEDS: IPRATROPIUM 0.5 MG/ALBUTEROL SULFATE 2.5 MG AMPUL.NEB 3 ML INHALATION ×5 (00:14→17:36)
--- NOTE | 2024-10-12 00:28 | PC.NURSE ---
Pt given a duoneb treatment which he tolerated well.
--- NOTE | 2024-10-12 00:57 | PC.NURSE ---
Pt given methylprednisolone 40 IVP as ordered.
--- NOTE | 2024-10-12 02:18 | PC.NURSE ---
Pt asleep and bipap remains in place. No signs of respiratory distress noted.
--- NOTE | 2024-10-12 04:12 | PC.NURSE ---
Pt asleep and respirations remain even and unlabored. No signs of respiratory distress noted.
--- NOTE | 2024-10-12 06:05 | PC.NURSE ---
Pt given a duoneb treatment which he tolerated well.
[2024-10-12 07:15] LABS: Hematocrit 64.7 % (40.0-54.0); Hemoglobin 19.2 g/dL (14.0-18.0); Immature Granulocyte Percent A 0.7 % (0.0-0.0); Lymphocytes Absolute Auto 1.30 K/mm3 (1.10-4.50); Mean Corpuscular HGB Conc 29.7 g/dL (32-36); Mean Corpuscular Hemoglobin 26.9 pg (27.0-31.0); Mean Corpuscular Volume 90.5 fL (78.0-102.0); Nucleated Red Blood Cells Absolute Auto 0.00 K/mm3 (0.00-0.00); Nucleated Red Blood Cells Perc 0.0 % (0-0.0); Platelet Count Result 281 K/mm3 (150-420); Red Blood Count 7.15 M/mm3 (4.70-6.10); White Blood Count 11.4 K/mm3 (4.8-10.8)
[2024-10-12 07:26] LABS: Alanine Aminotransferase 36 U/L (6-50); Albumin Level 4.7 g/dL (3.5-5.1); Alkaline Phosphatase 69 U/L (38-126); Anion Gap 15 mmol/L (4-12); Aspartate Amino Transferase 31 U/L (17-59); Bilirubin,Total 0.8 mg/dL (0.2-1.3); Blood Urea Nitrogen 32 mg/dL (9-20); Calcium 10.3 mg/dL (8.4-10.2); Carbon Dioxide 24 mmol/L (22-30); Chloride 101 mmol/L (98-107); Estimated CRCL calculation 90 ml/min; Estimated Glomerular Filt Rate > 60; Glucose 269 mg/dL (65-110); Magnesium 2.7 mg/dL (1.6-2.3); Osmolality Calculated 305 mOsm/kg (285-295); Potassium 4.5 mmol/L (3.4-5.0); Sodium 140 mmol/L (137-145); Total Protein 7.9 g/dL (6.3-8.2)
[2024-10-12] MEDS: INSULIN HUMAN LISPRO (*BKC) 1,000 UNITS/10 ML VIAL SUB-Q ×3 (08:28→17:36)
[2024-10-12] MEDS: SALMET XINAFT/FLUTIC PROPIN 250 MCG/50 MCG INH CAP 1 PUFF INHALATION ×2 (08:29→17:35)
[2024-10-12] MEDS: UMECLIDINIUM BROMIDE 62.5 MCG ELLIPTA 1 PUFF INHALATION (08:29)
[2024-10-12] MEDS: FLUTICASONE PROPIONATE 0.05% NA SPR 16 GM BTL (*BKC) 1 SPRAY NASAL ×2 (08:29→17:35)
[2024-10-12] MEDS: AZITHROMYCIN 250 MG TABLET 500 MG PO (08:30)
[2024-10-12] MEDS: guaiFENesin 12 HR 600 MG TABCR 1200 MG PO ×2 (08:30→20:33)
[2024-10-12] MEDS: ASCORBIC ACID 500 MG TABLET PO (08:30)
[2024-10-12] MEDS: LORATADINE 10 MG TABLET PO (08:30)
[2024-10-12] MEDS: CHOLECALCIFEROL (VITAMIN D3) 25 MCG (1,000 UNITS) TABLET 50 MCG PO (08:30)
[2024-10-12] MEDS: NICOTINE (*PBKC) 21 MG PATCH 1 PATCH TRANSDERM (08:30)
[2024-10-12] MEDS: buPROPion HCL SR (12 HR) 150 MG TAB PO ×2 (08:30→20:33)
[2024-10-12] MEDS: PANTOPRAZOLE 40 MG TABLET PO (08:31)
[2024-10-12] MEDS: ATORVASTATIN 40 MG TABLET PO (08:31)
[2024-10-12] MEDS: EMPAGLIFLOZIN 25 MG TABLET PO (08:31)
[2024-10-12] MEDS: APIXABAN 2.5 MG TABLET 5 MG PO ×2 (08:31→20:34)
[2024-10-12] MEDS: INSULIN GLARGINE (*BKC) 1,000 UNITS/10 ML VIAL 26 UNITS SUB-Q (08:32)
--- NOTE | 2024-10-12 16:23 | WPDPN ---
Progress Note: A&P Assessment and Plan (1) Sinus infection: Code(s): J32.9 - Chronic sinusitis, unspecified Status: Acute Assessment and Plan: Continue Antibioitcs daily allergy medication (2) Acute respiratory failure with hypoxia: Code(s): J96.01 - Acute respiratory failure with hypoxia Status: Acute Assessment and Plan: Continue with oxygen as indicted We will complete a am walk study (3) CPAP use counseling: Code(s): Z71.89 - Other specified counseling Status: Acute Assessment and Plan: discuss with case management (4) Sleep apnea: Code(s): G47.30 - Sleep apnea, unspecified Status: Acute Subjective Date/time seen: 10/12/24 16:23 Interval history: Patient is still having a congested cough and continues to smokes he informs me that his CPAP is not working. We will plan to see what can be done for his CPAP and plan for discharge in the morning. Patient symptos will continue as long as he continues to smoke . At this time we will continue with steroids and iv antibioitcs and breathing treatments Review of previous pulmonology note which states pt reported his bipap not working and it was evaulated and found to be working just fine. Exam Narrative: General appearance: Well-developed, well-nourished Skin: Normal color, poor hygienic condition Head: Normocephalic, nontraumatic Eyes: Clear conjunctiva ENT: Oropharynx normal, ears normal, nose normal Neck: Supple, nontender Chest and respiratory: Airway patent, no respiratory distress, no accessory muscle use, few expiratory wheezing bilaterally Heart: Regular rate/rhythm Abdomen: Soft, nontender, no organomegaly, quiet bowel sounds Musculoskeletal: Normal range of motion, nontender back Neurologic: Alert and oriented ?3, INTERNAL MEDICINE SPECIALIST is normal as tested, no gross motor deficit Objective Data Vital Signs Vital Signs: Vital Signs - 24 hr 10/11/24 22:56 10/11/24 23:05 10/12/24 00:16 Temperature 97.9 F Pulse Rate 76 86 Respiratory Rate 19 20 Blood Pressure 122/71 Pulse Oximetry 91 91 Oxygen Delivery Nasal Cannula Oxygen Flow Rate 2 2 10/12/24 00:25 10/12/24 06:00 10/12/24 06:15 Temperature Pulse Rate 84 100 95 Respiratory Rate 20 20 20 Blood Pressure Pulse Oximetry 94 88 L 92 Oxygen Delivery Oxygen Flow Rate 2 2 2 10/12/24 08:00 Temperature 97.5 F L Pulse Rate 88 Respiratory Rate 18 Blood Pressure 112/44 L Pulse Oximetry 90 Oxygen Delivery Room Air Oxygen Flow Rate Intake/Output Intake/Output: Intake & Output 10/09/24 10/10/24 10/11/24 10/12/24 23:59 23:59 23:59 23:59 Intake Total 3300 650 Output Total 4950 825 Balance -1650 -175 Meds/Results Medications: Active Medications Generic Name Dose Route Start Last Admin Trade Name Freq PRN Reason Stop Dose Admin Acetaminophen 650 mg 10/11/24 01:25 Acetaminophen 325 Mg Tablet PO Q4H PRN Mild Pain (1-3) or Fever Hydrocodone Bitart/Acetaminophen 1 tab 10/11/24 08:32 Hydrocodone/Acetaminophen (*Crx) 5-325 Mg Tablet PO Q4H PRN Moderate Pain (4-6) Albuterol 2.5 mg 10/11/24 01:31 Albuterol Sulfate Neb 2.5 Mg/3 Ml Inh INHALATION Q4HRT PRN Shortness Of Breath Albuterol/Ipratropium 3 ml 10/12/24 06:30 10/12/24 12:54 Ipratropium 0.5 Mg/Albuterol Sulfate 2.5 Mg Ampul.Neb 3 Ml INHALATION 3 ml Q6HRT MORRIS Administration Amlodipine Besylate 10 mg 10/11/24 09:00 10/12/24 08:31 Amlodipine Besylate 5 Mg Tablet PO 10 mg DAILY MORRIS Administration Amoxicillin/Clavulanate Potassium 1 tablet 10/11/24 09:00 10/12/24 08:30 Amoxicillin/Clavulanate K 875-125 Mg Tab PO 1 tablet Q12HR MORRIS Administration Apixaban 5 mg 10/11/24 09:00 10/12/24 08:31 Apixaban 2.5 Mg Tablet PO 5 mg Q12HR MORRIS Administration Ascorbic Acid 500 mg 10/11/24 09:00 10/12/24 08:30 Ascorbic Acid 500 Mg Tablet PO 500 mg DAILY MORRIS Administration Atorvastatin Calcium 40 mg 10/11/24 09:00 10/12/24 08:31 Atorvastatin 40 Mg Tablet PO 40 mg DAILY MORRIS Administration Azithromycin 500 mg 10/11/24 09:00 10/12/24 08:30 Azithromycin 250 Mg Tablet PO 500 mg DAILY MORRIS Administration Benzocaine 1 lozenge 10/11/24 17:13 10/11/24 21:03 Benzocaine/Menthol (*Bkc) Lozenge PO 1 lozenge PRN PRN Administration Sore Throat Bupropion HCl 150 mg 10/11/24 09:00 10/12/24 08:30 Bupropion Hcl Sr (12 Hr) 150 Mg Tab PO 150 mg Q12HR MORRIS Administration Dextrose 12.5 gm 10/11/24 08:30 Dextrose 50% 25 Gm/50 Ml Syringe IV PUSH PRN PRN Hypoglycemia Protocol Empagliflozin 25 mg 10/11/24 09:00 10/12/24 08:31 Empagliflozin 25 Mg Tablet PO 25 mg DAILY MORRIS Administration Fluticasone Propionate 1 spray 10/11/24 09:00 10/12/24 08:29 Fluticasone Propionate 0.05% Na Spr 16 Gm Btl (*Bkc) NASAL 1 spray BID MORRIS Administration Glucagon 1 mg 10/11/24 08:30 Glucagon For Inj 1 Mg Vial IM PRN PRN Hypoglycemia Protocol Glucose 15 gm 10/11/24 08:30 Glucose Oral Gel 15 Gm Of Glucse In 37.5 Gm Tube PO PRN PRN Hypoglycemia Protocol Guaifenesin 1,200 mg 10/11/24 09:00 10/12/24 08:30 Guaifenesin 12 Hr 600 Mg Tabcr PO 1,200 mg Q12HR MORRIS Administration Hydrochlorothiazide 25 mg 10/11/24 09:00 10/12/24 08:30 Hydrochlorothiazide 25 Mg Tablet PO 25 mg QAM MORRIS Administration Dextrose 1,000 mls @ 100 mls/hr 10/11/24 08:30 Dextrose 5% 1,000 Ml IVPB PRN PRN Hypoglycemia Protocol Insulin Glargine 26 units 10/11/24 09:00 10/12/24 08:32 Insulin Glargine (*Bkc) 1,000 Units/10 Ml Vial SUB-Q 26 units DAILY MORRIS Administration Insulin Human Lispro 2 - 5 units 10/11/24 12:00 10/12/24 12:03 Insulin Human Lispro (*Bkc) 1,000 Units/10 Ml Vial SUB-Q 2 units TIDWM MORRIS Administration Protocol Lisinopril 20 mg 10/11/24 09:00 10/12/24 08:31 Lisinopril 20 Mg Tablet PO 20 mg QAM MORRIS Administration Loratadine 10 mg 10/11/24 09:00 10/12/24 08:30 Loratadine 10 Mg Tablet PO 10 mg QAM MORRIS Administration Methylprednisolone Sodium Succinate 40 mg 10/11/24 09:00 10/12/24 08:29 Methylprednisolone Sod Succ 40 Mg Vial IV PUSH 40 mg Q8H MORRIS Administration Nicotine 1 patch 10/11/24 09:00 10/12/24 08:30 Nicotine (*Pbkc) 21 Mg Patch TRANSDERM 1 patch DAILY MORRIS Administration Ondansetron HCl 4 mg 10/11/24 08:32 Ondansetron Inj 4 Mg/2 Ml Vial IV PUSH Q6H PRN Nausea And Vomiting Pantoprazole Sodium 40 mg 10/11/24 09:00 10/12/24 08:31 Pantoprazole 40 Mg Tablet PO 40 mg QAM MORRIS Administration Fluticasone/Salmeterol 1 puff 10/11/24 09:00 10/12/24 08:29 Salmet Xinaft/Flutic Propin 250 Mcg/50 Mcg Inh Cap INHALATION 1 puff BID MORRIS Administration Umeclidinium Aguirre 1 puff 10/11/24 10:30 10/12/24 08:29 Umeclidinium Aguirre 62.5 Mcg Ellipta INHALATION 1 puff DAILYRT MORRIS Administration Vitamin D 50 mcg 10/11/24 09:00 10/12/24 08:30 Cholecalciferol (Vitamin D3) 25 Mcg (1,000 Units) Tablet PO 50 mcg DAILY MORRIS Administration Radiology Results: ITS Impressions Chest X-Ray 10/10/24 23:48 Impression: 1: Mild interstitial edema. Labs Labs: Laboratory Results - last 24 hr 10/11/24 10/11/24 10/11/24 16:57 17:14 20:56 WBC RBC Hgb Hct MCV MCH MCHC RDW Plt Count MPV Immature Gran % (Auto) Neut % (Auto) Lymph % (Auto) [place] % (Auto) Eos % (Auto) Baso % (Auto) Lymph # (Auto) [place] # (Auto) Eos # (Auto) Baso # (Auto) Abs Immat Gran (auto) Absolute Neuts (auto) Absolute Nucleated RBC Nucleated RBC % Sodium Potassium Chloride Carbon Dioxide Anion Gap BUN Creatinine Estim Creat Clear Calc Estimated GFR Glucose POC Capillary Glucose 268 H 273 H Calculated Osmolality Calcium Magnesium Total Bilirubin AST ALT Alkaline Phosphatase Total Protein Albumin Group A Strep (PCR) Not detected 10/12/24 10/12/24 07:04 11:40 WBC 11.4 H RBC 7.15 H Hgb 19.2 H Hct 64.7 H MCV 90.5 MCH 26.9 L MCHC 29.7 L RDW 19.4 H Plt Count 281 MPV 8.8 Immature Gran % (Auto) 0.7 H Neut % (Auto) 83.6 H Lymph % (Auto) 11.4 L [place] % (Auto) 2.7 Eos % (Auto) 0.9 L Baso % (Auto) 0.7 Lymph # (Auto) 1.30 [place] # (Auto) 0.31 Eos # (Auto) 0.10 Baso # (Auto) 0.08 Abs Immat Gran (auto) 0.08 H Absolute Neuts (auto) 9.54 H Absolute Nucleated RBC 0.00 Nucleated RBC % 0.0 Sodium 140 Potassium 4.5 Chloride 101 Carbon Dioxide 24 Anion Gap 15 H BUN 32 H Creatinine 0.96 Estim Creat Clear Calc 90 Estimated GFR > 60 Glucose 269 H POC Capillary Glucose 245 H Calculated Osmolality 305 H Calcium 10.3 H Magnesium 2.7 H Total Bilirubin 0.8 AST 31 ALT 36 Alkaline Phosphatase 69 Total Protein 7.9 Albumin 4.7 Group A Strep (PCR) Quality VTE Prophylaxis VTE prophylaxis: pharmacologic ordered
[2024-10-13] VITALS (12 sets, daily range): BP systolic 122; BP diastolic 74; PULSE 97–122; RESP 18–20; TEMP 36.9; O2SAT 83–99
[2024-10-13] MEDS: IPRATROPIUM 0.5 MG/ALBUTEROL SULFATE 2.5 MG AMPUL.NEB 3 ML INHALATION ×3 (00:02→12:50)
--- NOTE | 2024-10-13 06:43 | HOMEO2EVAL ---
Evaluation was performed at [facility] Home Oxygen Evaluation RC: Home Oxygen (O2) Evaluation Start: 10/13/24 07:00 Freq: ONCE Status: Active Protocol: RPE Activity Type Activity Date Activity User E-sign Co-sign Detail Recorded Client Recorded Date Recorded By Document 10/13/24 06:15 [email or web address] 10/13/24 06:42 SJB Document 10/13/24 06:17 [email or web address] [email or web address] 10/13/24 06:42 SJB Document 10/13/24 06:19 [email or web address] [email or web address] 10/13/24 06:42 SJB Document 10/13/24 06:25 [email or web address] [email or web address] 10/13/24 06:42 SJB Document 10/13/24 06:27 [email or web address] [email or web address] 10/13/24 06:42 SJB Document 10/13/24 06:30 [email or web address] [email or web address] 10/13/24 06:42 SJB 10/13/24 10/13/24 10/13/24 06:15 06:17 06:19 Home O2 Evaluation [Oxygen] -Test Phase Resting Exercise Exercise -Oxygen Delivery Room Air Room Air Nasal Cannula -Oxygen Flow Rate (L/min) 1 [Pulse Oximetry] -Pulse Oximetry (90-100 %) 91 83 L 86 L [Pulse Rate] -Pulse Rate (60-100 beats/min) 112 H 120 H 118 H [Evaluation] -Activity Tolerance Good -Rating of Perceived Dyspnea (PD) +1 Mild, +2 Mild, Some Noticeable to Difficulty, the Participant Noticeable to but Not to an the Observer Observer -Rate of Perceived Exertion (PE) 9 Very light 12 Query Text:Click the Protocol Button to View the RPE Scale [Exercise] -Ambulation Distance (feet) 140 -Ambulation Distance (meters) 42.66 [Comments] -Home Oxygen Evaluation Comments Will begin walk After approx. After starting on room air. 140 ft on room on 1 lpm and air, patient's waiting, Sp02 went down patients Sp02 to 83% an HR only came up to 120, will start 86, hr 118. on 1 lpm. Will increase to 2 lpm. After another 2 minutes, his Sp02 came up to 91%, so will continue walk. [Charges] -Evaluation Charges O2 Evaluation Charge 10/13/24 10/13/24 10/13/24 06:25 06:27 06:30 Home O2 Evaluation [Oxygen] -Test Phase Exercise Exercise Exercise -Oxygen Delivery Nasal Cannula Nasal Cannula Nasal Cannula -Oxygen Flow Rate (L/min) 2 3 4 [Pulse Oximetry] -Pulse Oximetry (90-100 %) 87 L 88 L 92 [Pulse Rate] -Pulse Rate (60-100 beats/min) 119 H 119 H 122 H [Evaluation] -Activity Tolerance Good Good Good -Rating of Perceived Dyspnea (PD) +2 Mild, Some +3 Moderate +2 Mild, Some Difficulty, Difficulty, But Difficulty, Noticeable to Can Continue Noticeable to the Observer the Observer -Rate of Perceived Exertion (PE) 12 13 Somewhat 13 Somewhat Query Text:Click the Protocol Button Hard Hard to View the RPE Scale [Exercise] -Ambulation Distance (feet) 50 50 100 -Ambulation Distance (meters) 15.23 15.23 30.47 [Comments] -Home Oxygen Evaluation Comments After 50 ft on After 50 more After another 2 lpm, Sp02 ft, sp02 100 feet on 4 dropped to 87%, dropped to 88% lpm, patient's HR 119. Will on 3 lpm, will sp02 stayed at increase to 3 increase to 4 91-92%, HR up lpm. Sp02 lpm. to 122. PLB was increased to 90 encouraged %. throughout the walk which totaled approximately 340 ft. [Charges] -Evaluation Charges
[2024-10-13 07:15] LABS: Hematocrit 59.4 % (40.0-54.0); Hemoglobin 18.4 g/dL (14.0-18.0); Immature Granulocyte Percent A 0.6 % (0.0-0.0); Lymphocytes Absolute Auto 0.91 K/mm3 (1.10-4.50); Mean Corpuscular HGB Conc 31.0 g/dL (32-36); Mean Corpuscular Hemoglobin 26.2 pg (27.0-31.0); Mean Corpuscular Volume 84.7 fL (78.0-102.0); Nucleated Red Blood Cells Absolute Auto 0.00 K/mm3 (0.00-0.00); Nucleated Red Blood Cells Perc 0.0 % (0-0.0); Platelet Count Result 300 K/mm3 (150-420); Red Blood Count 7.01 M/mm3 (4.70-6.10); White Blood Count 11.0 K/mm3 (4.8-10.8)
[2024-10-13 07:26] LABS: Alanine Aminotransferase 28 U/L (6-50); Albumin Level 4.4 g/dL (3.5-5.1); Alkaline Phosphatase 68 U/L (38-126); Anion Gap 11 mmol/L (4-12); Aspartate Amino Transferase 24 U/L (17-59); Bilirubin,Total 1.1 mg/dL (0.2-1.3); Blood Urea Nitrogen 34 mg/dL (9-20); Calcium 10.5 mg/dL (8.4-10.2); Carbon Dioxide 23 mmol/L (22-30); Chloride 103 mmol/L (98-107); Estimated CRCL calculation 90 ml/min; Estimated Glomerular Filt Rate > 60; Glucose 262 mg/dL (65-110); Magnesium 2.8 mg/dL (1.6-2.3); Osmolality Calculated 300 mOsm/kg (285-295); Potassium 4.7 mmol/L (3.4-5.0); Sodium 137 mmol/L (137-145); Total Protein 7.4 g/dL (6.3-8.2)
[2024-10-13] MEDS: INSULIN GLARGINE (*BKC) 1,000 UNITS/10 ML VIAL 26 UNITS SUB-Q (08:14)
--- OUTSIDE RECORDS SUMMARY | 2024-10-13 08:14 | XMS_ITS | Encounter Summary ---
Author Organization [facility] Address [address] [place] [address] Care Team Providers Care Cylinder Press Operator Helper Name Role Phone Zafar Loaiza MD Primary Care Provider [phone] Jarrod Morel MD Unavailable [phone] Ian Vinson DO Primary Care Provider [phone] Encounter Details Date Type Department Care Team (Late st Contact Info) Description 07/01/2015 Abstract [facility] [address] [place] [address] Jarrod Morel MD [address] [place] [address] Social History Tobacco Use Types [...] on filedocumented in this encounter Care Teams Cylinder Press Operator Helper Relationship Specialty Start Date End Date Zafar Loaiza MD [address] [place] [address] PCP - General FAMILY PRACTICE 07/26/16 06/17/19 Ian Vinson DO [address] [place] [address] PCP - General FAMILY PRACTICE 06/18/19 Jarrod Morel MD [address] [place] [id number] [place] Pension Administrator CARDIOVASCULAR DISEASE 07/26/16 documented as of this encounter
--- OUTSIDE RECORDS SUMMARY | 2024-10-13 08:14 | XMS_ITS | Clinical Summary ---
Author Organization [facility] Address [address] [place] [address] Care Team Providers Care Staffing Program Manager Name Role Phone Jarrod Morel MD Unavailable [phone] Ian Vinson DO Primary Care Provider [phone] Allergies No known active allergies Medications famotidine [...] Fish Oil-Cholecalcif elma (FISH OIL + D3) 6941-7281 MG-UNIT Cap Take 1 capsule by mouth [...] Current smoker 06/19/2019 DVT (deep venous thrombosis) ([facility]) 1 03/11/2016 Sleep apnea 01/09/2017 HTN (hypertension) 01/09/2017 COPD (chronic obstructive pu lmonary disease) ([facility]) 01/09/2017 Diabetes ([facility]) 01/09/2017 Pulmonary embolism ([facility]) 01/09/2017 Class 3 obesity without serious comorbidity in a dult 01/09/2017 Hyperlipidemia Immunizations Immunization Administration Dates Next Due Influenza (Generic) 1960 Pneumococcal (Pneumovax 23) 1960 Family History Medical History Relation Comments Coronary artery disease Father Coronary artery disease Mother Coronary artery disease Other prematur e Relation Status Comments Father Alive [place] with CABG at age 40, cataracts Mother [...] to Health Maintenance Insurance MEDICARE Care Teams Staffing Program Manager Relationship Specialty Start Date End Date Ian Vinson DO [address] [place] [address] PCP - General FAMILY PRACTICE 06/18/19 Jarrod Morel MD [address] [place] [address] [place] Management Advisor CARDIOVASCULAR DISEASE 07/26/16
--- OUTSIDE RECORDS SUMMARY | 2024-10-13 08:14 | XMS_ITS | Encounter Summary ---
Author Organization [facility] Address [facility] [place] [address] Care Team Providers Care Commercial Lines Manager Name Role Phone Zafar Loaiza MD Primary Care Provider [phone] Jarrod Morel MD Unavailable [phone] Ian Vinson DO Primary Care Provider [phone] Encounter Details Date Type Department Care Team (Late Contact Info) Description 09/10/2017 Abstract [facility] [address] [place] [address] Jarrod Morel MD [address] [place] [address] Social History Tobacco Use Types [...] on filedocumented in this encounter Care Teams Commercial Lines Manager Relationship Specialty Start Date End Date Zafar Loaiza MD [address] [place] [address] PCP - General FAMILY PRACTICE 07/26/16 06/17/19 Ian Vinson DO [address] [place] [address] PCP - General FAMILY PRACTICE 06/18/19 Jarrod Morel MD [address] [place] [address] [place] Morgue Keeper CARDIOVASCULAR DISEASE 07/26/16 documented as of this encounter
[2024-10-13] MEDS: INSULIN HUMAN LISPRO (*BKC) 1,000 UNITS/10 ML VIAL SUB-Q ×2 (08:16→11:40)
[2024-10-13] MEDS: NICOTINE (*PBKC) 21 MG PATCH 1 PATCH TRANSDERM (08:18)
[2024-10-13] MEDS: FLUTICASONE PROPIONATE 0.05% NA SPR 16 GM BTL (*BKC) 1 SPRAY NASAL (08:20)
[2024-10-13] MEDS: UMECLIDINIUM BROMIDE 62.5 MCG ELLIPTA 1 PUFF INHALATION (08:21)
[2024-10-13] MEDS: SALMET XINAFT/FLUTIC PROPIN 250 MCG/50 MCG INH CAP 1 PUFF INHALATION (08:22)
[2024-10-13] MEDS: CHOLECALCIFEROL (VITAMIN D3) 25 MCG (1,000 UNITS) TABLET 50 MCG PO (08:23)
[2024-10-13] MEDS: AZITHROMYCIN 250 MG TABLET 500 MG PO (08:23)
[2024-10-13] MEDS: ATORVASTATIN 40 MG TABLET PO (08:25)
[2024-10-13] MEDS: APIXABAN 2.5 MG TABLET 5 MG PO (08:25)
[2024-10-13] MEDS: LORATADINE 10 MG TABLET PO (08:26)
[2024-10-13] MEDS: guaiFENesin 12 HR 600 MG TABCR 1200 MG PO (08:26)
[2024-10-13] MEDS: PANTOPRAZOLE 40 MG TABLET PO (08:26)
[2024-10-13] MEDS: EMPAGLIFLOZIN 25 MG TABLET PO (08:26)
[2024-10-13] MEDS: buPROPion HCL SR (12 HR) 150 MG TAB PO (08:26)
[2024-10-13] MEDS: ASCORBIC ACID 500 MG TABLET PO (08:27)
--- NOTE | 2024-10-13 09:56 | P.DS_ITS ---
DS: Admitting Diagnosis Discharge Date 10/13/2024 Admitting Diagnosis Respiratory distress DS: Discharge Diagnosis Discharge Diagnosis (1) Sinus infection: Code(s): J32.9 - Chronic sinusitis, unspecified Status: Acute Assessment and Plan: Continue Antibioitcs daily allergy medication (2) Acute respiratory failure with hypoxia: Code(s): J96.01 - Acute respiratory failure with hypoxia Status: Acute Assessment and Plan: Continue with oxygen as indicted We will complete a am walk study (3) CPAP use counseling: Code(s): Z71.89 - Other specified counseling Status: Acute Assessment and Plan: discuss with case management (4) Sleep apnea: Code(s): G47.30 - Sleep apnea, unspecified Status: Acute DS: Summary Hospital Course Reason for hospitalization: Respiratory Failure Hospital Course: This is a 64 yea r old male that has been treated for Respirator distress On admission, the patient was noted to have worsening shortness of breath. His PMH includes COPD, HTN, Diabetes Mellitus, hyperlipidemia, and Obstructive sleep apnea. He owes a CPAP in which he states does not use it d/t it is broken. The patient is a active smoker. A chest X-ray revealed mild interstitial edema. Intital treatment in the emergency room included IV steroids, breathing treatments, IV antibiotics and supplemental oxygen. Laboratory studies showed a mildly elevated WBC count of 11.0. Patient required 2l of oxygen initially along with suction for sinus drainage and management of productive cough and excessive mucous. He has since been wean off oxygen and has maintained room air for the past 24 hours. The patient continued on IV steroids and breathing treatment and currently he is speaking in full sentences, tolerating oral intake without difficulties and has remained afebrile. The plan is to discharge the pateint home with prophylactic antibioitics, a rescure inhaler, and nebulizer. He is adcised to follow up with his pcp for ongoing management and evaluation of cpap and smoking cessation . Time Spent with Patient Time attestation: Total time spent providing and/or coordinating discharge services: Exam Narrative: General appearance: Well-developed, well-nourished Skin: Normal color, poor hygienic condition Head: Normocephalic, nontraumatic Eyes: Clear conjunctiva ENT: Oropharynx normal, ears normal, nose normal Neck: Supple, nontender Chest and respiratory: Airway patent, no respiratory distress, no accessory muscle use, few expiratory wheezing bilaterally Heart: Regular rate/rhythm Abdomen: Soft, nontender, no organomegaly, quiet bowel sounds Musculoskeletal: Normal range of motion, nontender back Neurologic: Alert and oriented ?3, CLOTH GRADER is normal as tested, no gross motor deficit DS: Data Data Completed and Pending Labs on day of discharge: Labs from last 24 hours 10/13/24 10/13/24 10/12/24 07:32 07:09 20:38 WBC 11.0 H RBC 7.01 H Hgb 18.4 H Hct 59.4 H MCV 84.7 MCH 26.2 L MCHC 31.0 L RDW 18.7 H Plt Count 300 MPV 9.0 Immature Gran % (Auto) 0.6 H Neut % (Auto) 87.9 H Lymph % (Auto) 8.3 L Patrick % (Auto) 2.5 Eos % (Auto) 0.2 L Baso % (Auto) 0.5 Lymph # (Auto) 0.91 L Patrick # (Auto) 0.28 Eos # (Auto) 0.02 Baso # (Auto) 0.05 Abs Immat Gran (auto) 0.07 H Absolute Neuts (auto) 9.66 H Absolute Nucleated RBC 0.00 Nucleated RBC % 0.0 Sodium 137 Potassium 4.7 Chloride 103 Carbon Dioxide 23 Anion Gap 11 BUN 34 H Creatinine 0.97 Estim Creat Clear Calc 90 Estimated GFR > 60 Glucose 262 H POC Capillary Glucose 220 H 191 H Calculated Osmolality 300 H Calcium 10.5 H Magnesium 2.8 H Total Bilirubin 1.1 AST 24 ALT 28 Alkaline Phosphatase 68 Total Protein 7.4 Albumin 4.4 10/12/24 10/12/24 16:54 11:40 WBC RBC Hgb Hct MCV MCH MCHC RDW Plt Count MPV Immature Gran % (Auto) Neut % (Auto) Lymph % (Auto) Patrick % (Auto) Eos % (Auto) Baso % (Auto) Lymph # (Auto) Patrick # (Auto) Eos # (Auto) Baso # (Auto) Abs Immat Gran (auto) Absolute Neuts (auto) Absolute Nucleated RBC Nucleated RBC % Sodium Potassium Chloride Carbon Dioxide Anion Gap BUN Creatinine Estim Creat Clear Calc Estimated GFR Glucose POC Capillary Glucose 215 H 245 H Calculated Osmolality Calcium Magnesium Total Bilirubin AST ALT Alkaline Phosphatase Total Protein Albumin Discharge Plan Discharge Attending physician on discharge: Aj Aguilera Consulting providers: Loida Dickerson; Kay Martinez; Aidan Blood; Fransisco Harp Discharging Clinician: Kay Martinez Anticipated Discharge Date/Time: 10/13/24 09:50 Patient Disposition: Home Activity: may shower Diet: regular and diabetic Wound Care Instructions: follow printed instructions Discharge Instructions: no smoking with oxygen on you could blow yourself up Patient Instructions: Antibiotic Form, Loratadine (By mouth), Azithromycin (By mouth), Effects of Smoking, Alcohol, and Medicines on (DC), How to Stop Smoking (DC), Cigarette Smoking and Your Health (GEN), Fall Prevention for Older Adults (DC), Using Oxygen at Home (DC), COPD (Chronic Obstructive Pulmona ry Disease) (DC) Patient Language: Sierra Leonean Stand Alone Forms: General Discharge Information Follow-up/Referrals: Scott Dent MD [Primary Care Provider, Internal Medicine] Referral Note: call and schedule a post hospital appointment Discharge Medications: New albuterol sulfate 2.5 mg /3 mL (0.083 %) Solution For Nebulization 2.5 mg inhalation Q4HRT PRN (Reason: Shortness Of Breath) Qty: 8.5 0RF loratadine 10 mg Tablet 10 mg PO QAM Qty: 30 0RF Continued cholecalciferol (vitamin D3) [D3-2000] 50 mcg (2,000 unit) capsule 50 mcg PO DAILY insulin glargine [Lantus Solostar U-100 Insulin] 100 unit/mL (3 mL) insulin pen 26 unit subcut QAM ascorbate calcium (vitamin C) 500 mg tablet 500 mg PO DAILY mecobalamin (vitamin B12) 5,000 mcg tablet,disintegrating 5,000 mcg PO DAILY Fish Oil 100-160-1,000 mg capsule 2 cap PO BID albuterol sulfate 90 mcg/actuation HFA aerosol inhaler 1 - 2 inh inhalation Q4-6H PRN (Reason: shortness of breath or wheezing) Qty: 8.5 2RF (DME) insulin syringe-needle U-100 [TRUEplus Insulin] 0.3 mL 31 gauge x 5/16 syringe See Rx Instructions .ROUTE .COMPLEX Qty: 100 5RF Dose Instruction: USE 4 TIMES A DAY DIRECTED Rx Instructions: USE 4 TIMES A DAY DIRECTED (DME) blood-glucose meter [OneTouch Ultra2 Meter] [facility] [place] Rx Instructions .Route Qty: 1 0RF Rx Instructions: As directed fluticasone propionate 50 mcg/actuation spray,suspension 1 spray intranasal BID Qty: 16 11RF Rx Instructions: administer into each nostril (DME) OneTouch Ultra Test Strip See Rx Instructions .ROUTE .COMPLEX Qty: 100 6RF Dose Instruction: TEST 3 TIMES A DAY Rx Instructions: TEST 3 TIMES A DAY Incruse Ellipta 62.5 mcg/actuation blister with device See Rx Instructions .ROUTE .COMPLEX Qty: 30 11RF Dose Instruction: INHALE 1 PUFF DAILY Rx Instructions: INHALE 1 PUFF DAILY bupropion HCl 150 mg tablet sustained-release 12 hr See Rx Instructions .ROUTE .COMPLEX Qty: 180 3RF Dose Instruction: TAKE 1 TABLET BY MOUTH TWICE A DAY Rx Instructions: TAKE 1 TABLET BY MOUTH TWICE A DAY atorvastatin 40 mg tablet See Rx Instructions .ROUTE .COMPLEX Qty: 90 0RF Dose Instruction: TAKE 1 TABLET BY MOUTH EVERYDAY AT BEDTIME Rx Instructions: TAKE 1 TABLET BY MOUTH EVERYDAY AT BEDTIME omeprazole 20 mg capsule,delayed release(DR/EC) See Rx Instructions .ROUTE .COMPLEX Qty: 90 3RF Dose Instruction: TAKE 1 CAPSULE BY MOUTH EVERY DAY Rx Instructions: TAKE 1 CAPSULE BY MOUTH EVERY DAY lisinopril-hydrochlorothiazide 20-25 mg tablet See Rx Instructions .ROUTE .COMPLEX Qty: 90 3RF Dose Instruction: TAKE 1 TABLET BY MOUTH EVERY DAY Rx Instructions: TAKE 1 TABLET BY MOUTH EVERY DAY Jardiance 25 mg tablet See Rx Instructions .ROUTE .COMPLEX Qty: 90 0RF Dose Instruction: TAKE 1 TABLET BY MOUTH EVERY DAY Rx Instructions: TAKE 1 TABLET BY MOUTH EVERY DAY amlodipine 10 mg tablet See Rx Instructions .ROUTE .COMPLEX Qty: 90 0RF Dose Instruction: TAKE 1 TABLET BY MOUTH EVERY DAY Rx Instructions: TAKE 1 TABLET BY MOUTH EVERY DAY Ozempic 1 mg/dose (4 mg/3 mL) pen injector 1 mg subcut WEEKLY Qty: 3 0RF (DME) lancets [OneTouch Delica Plus Lancet] [address] [facility] [place] [facility] See Rx Instructions .ROUTE .COMPLEX Qty: 100 5RF Dose Instruction: USE 1 TO TEST BLOOD SUGAR THREE TIMES DAILY NEEDED Rx Instructions: USE 1 TO TEST BLOOD SUGAR THREE TIMES DAILY NEEDED Eliquis 5 mg tablet See Rx Instructions .ROUTE .COMPLEX Qty: 180 1RF Dose Instruction: 5 MG ORALLY TWICE A DAY Rx Instructions: 5 MG ORALLY TWICE A DAY (DME) pen needle, diabetic [TechLITE Pen Needle] 31 gauge x 5/16 needle See Rx Instructions .ROUTE .COMPLEX Qty: 100 5RF Dose Instruction: USE DIRECTED Rx Instructions: USE DIRECTED metformin 1,000 mg tablet See Rx Instructions .ROUTE .COMPLEX Qty: 180 2RF Dose Instruction: TAKE 1 TABLET BY MOUTH TWICE A DAY Rx Instructions: TAKE 1 TABLET BY MOUTH TWICE A DAY montelukast 10 mg tablet See Rx Instructions .ROUTE .COMPLEX Qty: 90 0RF Dose Instruction: TAKE 1 TABLET BY MOUTH EVERY DAY Rx Instructions: TAKE 1 TABLET BY MOUTH EVERY DAY fenofibrate 160 mg tablet See Rx Instructions .ROUTE .COMPLEX Qty: 90 0RF Dose Instruction: TAKE 1 TABLET BY MOUTH EVERY DAY Rx Instructions: TAKE 1 TABLET BY MOUTH EVERY DAY No Action fluticasone propion-salmeterol 250-50 mcg/dose blister with device See Rx Instructions .ROUTE .COMPLEX Qty: 60 2RF Dose Instruction: INHALE 1 PUFF BY MOUTH TWICE A DAY *RINSE AND SPIT AFTER USE Rx Instructions: INHALE 1 PUFF BY MOUTH TWICE A DAY *RINSE AND SPIT AFTER USE Date of admission: 10/11/24 01:26 Primary Care Provider: Scott Dent Admitting Provider: Aj Aguilera Attending physician on admission: Aj Aguilera Condition: Stable
--- NOTE | 2024-10-13 14:11 | PC.NURSE ---
IV site discontinued in preparation for discharge. Discharge instructions given to patient and patient voices understanding. Patient's home meds returned. Awaiting oxygen delivery to discharge patient.
--- NOTE | 2024-10-13 14:30 | PC.NURSE ---
Oxygen supplier delivered O2 to patient and educated patient on use. Patient expressed understanding. Questioned Documents Examiner assisted patient off unit in w/c and patient left hospital grounds via [facility] public transit. Personal belongings and home meds sent home with patient.
--- NOTE | 2024-10-15 11:12 | PC.NURSE ---
Discharge call back completed, spoke to significant other, states doing ok, wearing oxygen, no questions regarding dicharge instructions or medications.
== END 2024-10-13 14:30 | disposition home or self-care (01) ==
LOC: CHSED 10-11 01:25 → CHS2ND 10-11 16:04
PROVIDERS: Nurse Practitioner Family; Admitting Provider Internal Medicine; Emergency Provider Emergency Medicine; PCP Family Medicine; Visit Provider Internal Medicine
DX: J96.01 Acute respiratory failure with hypoxia (principal); J44.1 Chronic obstructive pulmonary disease with (acute) exacerbation; J32.9 Chronic sinusitis, unspecified; I10 Essential (primary) hypertension; E11.9 Type 2 diabetes mellitus without complications; E78.5 Hyperlipidemia, unspecified; G47.33 Obstructive sleep apnea (adult) (pediatric); Z99.89 Dependence on other enabling machines and devices; K21.9 Gastro-esophageal reflux disease without esophagitis; F17.210 Nicotine dependence, cigarettes, uncomplicated; Z79.4 Long term (current) use of insulin; Z86.718 Personal history of other venous thrombosis and embolism; Z79.01 Long term (current) use of anticoagulants; Z20.822 Contact with and (suspected) exposure to COVID-19
CPT/HCPCS: 36415; 36600; 71045; 80053; 82805; 82948; 83605; 83735; 83880; 84484; 85025; 85380; 85610; 85730; 87040; 87637; 87651; 93005; 94618; 94640; 96374; 96376; 99285; A9270; G0378; J1815; J2919

== ENCOUNTER 2024-11-28 06:55 | Outpatient (CLI) | payer MEDICARE, SELFPAY ==
--- NOTE | ~2024-11-28 | CT_ITS ---
EXAMINATION: CT chest abdomen pelvis w con DATE: 11/28/2024 08:45 INDICATION: Polycythemia. TECHNIQUE: Computed tomography (CT) of the chest, abdomen, and pelvis was performed with 100 mL Omnipaque 350 intravenous contrast. Automated exposure control and iterative reconstruction technique were employed. The dose-length product was 1935.54 mGy-cm. COMPARISON: Chest CT 09/15/2024 FINDINGS: CHEST CT: There is mild emphysema. There is mild atelectasis laterally. No pleural effusion. The heart size is normal. There are coronary artery calcifications. No pericardial effusion. There is bilateral gynecomastia. There is severe cervical spondylosis and mild thoracic spondylosis. There is an old fracture of C7 spinous process. ABDOMEN/PELVIS CT: The liver, gallbladder, spleen, pancreas, adrenal glands, and left kidney are normal. There are cysts in right kidney measuring up to 8 mm. The prostate is mildly enlarged. There is a left inguinal hernia containing fat. There are no dilated loops of bowel. The appendix is normal. There are no pathologically enlarged lymph nodes. There is no free intraperitoneal fluid. There is mild lumbar spondylosis. IMPRESSION: 1. Mild emphysema. 2. Left inguinal hernia containing fat. Reviewed, dictated and finalized at location E.
--- OUTSIDE RECORDS SUMMARY | 2024-11-28 06:59 | XMS_ITS | Clinical Summary ---
Author Organization [facility] Address [address] [place] [address] Care Team Providers Care Cellophaner Name Role Phone Jarrod Morel MD Unavailable [phone] Ian Vinson DO Primary Care Provider [phone] Allergies No known active allergies Medications famotidine [...] Fish Oil-Cholecalcif elma (FISH OIL + D3) 1248-3330 MG-UNIT Cap Take 1 capsule by mouth [...] Current smoker 06/19/2019 DVT (deep venous thrombosis) ([facility]) 1 03/11/2016 Sleep apnea 01/09/2017 HTN (hypertension) 01/09/2017 COPD (chronic obstructive pu lmonary disease) ([facility]) 01/09/2017 Diabetes ([facility]) 01/09/2017 Pulmonary embolism ([facility]) 01/09/2017 Class 3 obesity without serious comorbidity in a dult 01/09/2017 Hyperlipidemia Immunizations Immunization Administration Dates Next Due Influenza (Generic) 1960 Pneumococcal (Pneumovax 23) 1960 Family History Medical History Relation Comments Coronary artery disease Father Coronary artery disease Mother Coronary artery disease Other prematur e Relation Status Comments Father Alive [place] with CABG at age 40, cataracts Mother [...] COVID-19 Vaccine (1 - 2023-2 5 season) 2024 Influenza Adult (#1) 2024 1960 Meningococcal B Vaccine Aged Out No [...] (CALCULATED) 51 ALT 38 AST 15 08/05/2015 Jarrod Morel MD LAB-OUTSIDE/ABSTRACTED Leny l Result from Last 3 Months or Most Recently Relevant to Health Maintenance Insurance MEDICARE Care Teams Cellophaner Relationship Specialty Start Date End Date Ian Vinson DO [address] [place] [address] PCP - General FAMILY PRACTICE 06/18/19 Jarrod Morel MD [address] [place] [address] [place] Civil Service Clerk CARDIOVASCULAR DISEASE 07/26/16
--- OUTSIDE RECORDS SUMMARY | 2024-11-28 06:59 | XMS_ITS | Encounter Summary ---
Author Organization [facility] Address [facility] [place] [address] Care Team Providers Care Corrugator Operator Helper Name Role Phone Zafar Loaiza MD Primary Care Provider [phone] Jarrod Morel MD Unavailable [phone] Ian Vinson DO Primary Care Provider [phone] Encounter Details Date Type Department Care Team (Late st Contact Info) Description 07/01/2015 Abstract [facility] [address] [place] [address] Jarrod Morel MD [address] [place] [address] Social History Tobacco Use Types [...] on filedocumented in this encounter Care Teams Corrugator Operator Helper Relationship Specialty Start Date End Date Zafar Loaiza MD [address] [place] [address] PCP - General FAMILY PRACTICE 07/26/16 06/17/19 Ian Vinson DO [address] [place] [address] PCP - General FAMILY PRACTICE 06/18/19 Jarrod Morel MD [address] [place] [address] [place] Radio Frequency Engineer CARDIOVASCULAR DISEASE 07/26/16 documented as of this encounter
[2024-11-28 08:33] LABS: Estimated Glomerular Filt Rate > 60
== END 2024-11-28 06:56 | disposition home or self-care (01) ==
PROVIDERS: PCP Family Medicine; Visit Provider Internal Medicine Hematology
DX: D75.1 Secondary polycythemia (principal); J43.9 Emphysema, unspecified; K40.90 Unilateral inguinal hernia, without obstruction or gangrene, not specified as recurrent
CPT/HCPCS: 71260; 74177; Q9967